=== PATIENT | female | born 1955 | race Caucasian/White ===

== ENCOUNTER → 2017-10-11 13:26 | Outpatient (CLI) | payer OTHER, SELFPAY ==
--- NOTE | 2017-10-11 13:46 | XR_ITS ---
XR chest 2V Ordering Physician: Valentino Elias MD Patient Age: 62 years: Female HISTORY: ITS.REASON: BRONCHITIS COPD. Short of breath TECHNIQUE: PA and lateral chest COMPARISON :February 2 [address] chest January [address] chest FINDINGS The previous CT chest show some areas of scarring anteriorly at both lingula and RML I believe those are again seen on today's CXR The mild accentuation of markings anteriorly at the lingula partially obscures the the left heart border cardiac apex but if anything the lung slightly better delineated and clear. Than on 2015 portable chest. The heart is normal in size reji and mediastinal structures satisfactory. The chest wall is intact T-spine intact. IMPRESSION: 1. Stable chest nothing definitely acute. COPD Minimal scarring/Mild chronic changes anteriorly at lingula and RML as seen on previous studies
== END ==
PROVIDERS: PCP Family Medicine; Visit Provider Family Medicine
DX: J20.0 Acute bronchitis due to Mycoplasma pneumoniae (principal)
CPT/HCPCS: 71046

== ENCOUNTER → 2018-01-11 07:49 | Outpatient (CLI) | payer OTHER, SELFPAY ==
--- NOTE | 2018-01-11 07:52 | CT_ITS ---
CT lung screening EXAM: CT LUNG LOW DOSE WO CONTRAST COMPARISON: None HISTORY: 62-year-old female with 60 pack-year smoking history, asymptomatic, quit 3 years ago ITS.REASON: PERSONAL HX NICOTINE DEPENDENCE ORDERING PHYSICIAN: Valentino Elias MD PATIENT AGE: 62 years TECHNIQUE: The exam was performed on a [employer] Light Speed [address] scanner using 2.90 mGy CTDI. A low dose helical CT CHEST was performed on a multi-detector scanner. All CT scans at the facility use one or more dose reduction, viz: automated exposure control; ma/kV adjustment per patient size (including targeted exams where dose is matched to indication; i.e. head); or iterative reconstruction technique. The LDCT was performed in a facility that meets the criteria for the screening program. Data regarding this exam was submitted to ACR which is an approved registry. The order for this exam indicates that it came as a result of a lung cancer screening counseling shard decision-making visit that included all the elements required of such a visit including smoking cessation. The radiologist interpreting this exam meets the CMS criteria for the LDCT lung cancer screening program. The exam is reported using the Lung-RADS classification scale and reported to the ACR registry. NOTE: This study was performed for the specific purposes of lung cancer screening and is not an alternative to diagnostic chest CT. RADIATION DOSE: CTDI vol(CT dose Index-volume) = 2.90mG DLP (Dose Length Product) = 110.08 mGcm FINDINGS: There are scattered small mediastinal and hilar lymph nodes some of which are calcified. There are coronary artery calcifications. Centrilobular emphysema with coarsening of the bronchovascular markings consistent with smoking-related lung disease. Calcified granuloma right upper lobe inferiorly.. There is volume loss of the right middle lobe. No obvious central obstructing lesion. Atelectatic changes are present within the lingula as well involving the inferior segment. IMPRESSION: 1. Lung RADS Category: 2, benign 2. Other findings: Centrilobular emphysema with coarsening of the bronchovascular markings consistent with smoking-related lung disease. Right middle lobe collapse. Etiology may be better evaluated for with bronchoscopy if clinically warranted. No central obstructing lesion apparent. RECOMMENDATIONS: 12 month LDCT follow-up
== END ==
PROVIDERS: PCP Family Medicine; Visit Provider Family Medicine
DX: Z87.891 Personal history of nicotine dependence (principal); Z12.2 Encounter for screening for malignant neoplasm of respiratory organs

== ENCOUNTER → 2019-03-10 13:43 | Outpatient (CLI) | payer OTHER, SELFPAY ==
--- NOTE | 2019-03-10 14:07 | XR_ITS ---
XR wrist LT min 3V Ordering Physician: Vanessa Joiner APRN Patient Age: 63 years: Female HISTORY: ITS.REASON: LT WRIST INJURY Fall with left wrist pain TECHNIQUE: 3 views left wrist. COMPARISON : No previous. FINDINGS No acute fracture. No dislocation. Normal relationships. . Mild early diffuse demineralization. May benefit from correlation with DEXA . Minor deformity distal ulnar shaft likely reflects old healed fracture here. Long ulnar styloid Scant early degenerative changes at first carpal-metacarpal joint noted. .... IMPRESSION: ... 1.... No acute fracture nor dislocation.Left wrist intact . Scant degenerative changes first carpal metacarpal joint Suggestion Mild early diffuse demineralization.
== END ==
PROVIDERS: PCP Nurse Practitioner Family; Visit Provider Nurse Practitioner Family
DX: S69.92XA Unspecified injury of left wrist, hand and finger(s), initial encounter (principal)
CPT/HCPCS: 73110

== ENCOUNTER → 2019-03-20 14:07 | Outpatient (CLI) | payer OTHER, SELFPAY ==
--- NOTE | 2019-03-20 14:14 | XR_ITS ---
XR DEXA axial skeleton HISTORY: ITS.REASON: POST MENOPAUSAL ORDERING PHYSICIAN: Chely Jeffery APRN PATIENT AGE: 63 years COMPARISON: None FINDINGS: The BMD measured at the Left femoral neck is 0.622 g/cm squared with a T score of -3.0. This is considered Osteoporotic according to the World Health Organization criteria. Fracture risk is High. Treatment is advised. IMPRESSION: Osteoporosis with high fracture risk. Treatment is advised. Suggest follow-up exam March 2020
== END ==
PROVIDERS: PCP Nurse Practitioner Family; Visit Provider Nurse Practitioner
DX: M81.0 Age-related osteoporosis without current pathological fracture (principal)
CPT/HCPCS: 77080

== ENCOUNTER → 2019-04-13 15:28 | Outpatient (CLI) | payer OTHER, SELFPAY ==
--- NOTE | 2019-04-13 15:34 | US_ITS ---
US thyroid HISTORY: ITS.REASON: HYPOTHYROIDISM ORDERING PHYSICIAN: Chely Jeffery APRN PATIENT AGE: 63 years Comparison: None FINDINGS: AP diameter of the isthmus is 1.3 mm. Right thyroid lobe is 0.9 x 3.4 x 0.8 cm. Left thyroid lobe is 0.9 x 3.4 x 1.1 cm. The entire thyroid gland is moderately heterogeneous. Mid right thyroid lobe shows a oval-shaped slightly hypoechoic solid nodule which is wider than tall. Margins are smooth. Lesion is hypoechoic compared to the thyroid tissue although more echogenic compared to the strap muscles. There are no echogenic foci within the nodule. Nodule measures 0.3 x 0.3 cm in transverse and AP diameter and 0.6 cm in length. Impression: Solitary right thyroid lobe nodule as discussed above. TI-rad category is 4. Moderately suspicious. Recommendation: Follow if less than or equal to 1 cm. Therefore consider follow-up ultrasound at 6-12 months. Consider FNA if the nodule enlarges to 1.5 cm or greater.
== END ==
PROVIDERS: PCP Nurse Practitioner Family; Visit Provider Nurse Practitioner
DX: E03.9 Hypothyroidism, unspecified (principal)
CPT/HCPCS: 76536

== ENCOUNTER 2019-04-24 08:30 | Outpatient (RCR) | payer OTHER, SELFPAY ==
--- NOTE | 2019-03-20 15:55 | HMH.PTOPWND ---
Rehab Outpt Wound Evaluation Rehab OP Wound Evaluation Start: 03/20/19 15:43 Freq: Status: Active Protocol: Document 03/20/19 15:44 PWILLIAMS (Rec: 03/20/19 15:55 PWILLIAMS [id number]) Electronically Signed By Joce Rock, RIC 03/20/19 15:44 Subjective/History History History This is the initial wound clinic evaluation for Maryam Villalobos. Pt is a 63 y/o female referred to PT wound clinic for R knee wound. Pt reports 03/09/19 she was at work and tripped over a rug and skinned R knee as she fell . Pt reports wound has scabbed and is very painful. Subjective Subjective Pt c/o severe TTP and pain w/ movement Wound Eval Wound Right Knee Wound Type Abrasion Wound Length (cm) 3.5 Wound Width (cm) 2.5 Wound Depth (cm) 0.8 Wound Bed Appearance Beefy Red,Dusky Red,Yellow, Slough Percentage Granulated (%) 75 Percentage of Slough (%) 25 Percentage of Eschar (Black) (%) 10 Percentage of Eschar (Yellow) (%) 15 Wound Margins Description Well Defined Surrounding Tissue Appearance Markesan Drainage Description Serous Drainage Amount Scant Drainage Odor No Odor Dressing Status Open to Air Wound Topical Solution/Irrigant Antibiotic Irrigant Primary Dressing Silver Dressing Comment tegederm AG mesh Wound Secondary Dressing Type Drainage Sponge,Gauze Roll/ Wrap,Adhering Gauze Roll Comment optifoam lite, kerlix/coban Wound Debridement Method Sharps Wound Debridement Amount of Tissue Moderate Removed Wound Debridement Result Healthy Tissue Revealed,Yellow Sloughing Remains Dressing Change Date 03/20/19 Dressing Change Patient Tolerance Tolerated Poorly Wound Problems/Impairments Impairments Problems/Impairmments Palpation Tenderness,Impaired Walking,Impaired Shower/ Bathing,Impaired Bending, Impaired Recreational Activities,Impaired Work Activities,Wound Care Needs, Subjective C/O Pain,Impaired Self Care/Self Management Prognosis Rehab Potential Good Clinical Impression
== END 2019-04-24 08:35 | disposition home or self-care (01) ==
LOC: PT 08:30
PROVIDERS: Visit Provider Nurse Practitioner
DX: L08.9 Local infection of the skin and subcutaneous tissue, unspecified (principal)
CPT/HCPCS: 97161; 97597

== ENCOUNTER 2019-04-24 08:53 | Outpatient (CLI) | payer OTHER, SELFPAY ==
[2019-04-24 09:17] VITALS: BP 162/97; PULSE 91; RESP 18; TEMP 36.4; O2SAT 96
== END 2019-04-24 09:45 | disposition home or self-care (01) ==
LOC: INF 08:53
PROVIDERS: PCP Nurse Practitioner Family; Visit Provider Family Medicine
DX: M81.0 Age-related osteoporosis without current pathological fracture (principal)
CPT/HCPCS: 96372; J0897

== ENCOUNTER → 2019-05-09 12:53 | Outpatient (CLI) | payer OTHER, SELFPAY ==
--- NOTE | 2019-05-09 | US_ITS ---
PROCEDURE: REPEAT VIEW US CLINICAL INDICATION: Thyroid nodule COMPARISON: THY US thyroid from 04/13/2019 FINDINGS: Patient was scheduled for thyroid fine needle aspiration. Pre biopsy images were reviewed and demonstrates a small area of decreased echogenicity in the right lobe of the thyroid gland at 6 x 3 mm. This was difficult to visualize and felt too small to attempt fine-needle aspiration and is adjacent to the carotid artery. After discussing the risk and benefits with the patient and referring physician, it was decided to do follow-up ultrasounds. If the nodule increases in size and fine-needle aspiration could be performed at that time. There was no change since the previous exam of 04/13/2019 IMPRESSION: No change in small nodule in the right lobe of the thyroid gland. Suggest 6 month sonographic follow-up Dictated by: Bro Burk MD 05/10/2019 05:04 Signed by: <Electronically signed by Bro Burk MD in [place]> 05/10/2019 05:04
== END ==
PROVIDERS: PCP Family Medicine; Visit Provider Family Medicine
DX: E04.1 Nontoxic single thyroid nodule (principal)

== ENCOUNTER 2019-10-30 09:03 | Outpatient (CLI) | payer OTHER, SELFPAY ==
[2019-10-30 09:25] VITALS: BP 125/89; PULSE 89; RESP 18; TEMP 36.6; O2SAT 98
== END 2019-10-30 09:40 | disposition home or self-care (01) ==
LOC: INF 09:04
PROVIDERS: PCP Nurse Practitioner Family; Visit Provider Nurse Practitioner Family
DX: M81.0 Age-related osteoporosis without current pathological fracture (principal)
CPT/HCPCS: 96372; J0897

== ENCOUNTER → 2020-02-05 12:47 | Outpatient (CLI) | payer OTHER, SELFPAY ==
--- NOTE | 2020-02-05 12:54 | US_ITS ---
PROCEDURE: US THYROID CLINICAL INDICATION: THYROID NODULE COMPARISON: THY US thyroid from 04/13/2019 FINDINGS: Right lobe: The right lobe is 3.6 x 1.1 x 1.1 cm. There is an 8 x 4 mm hypoechoic nodule in the mid aspect of the right lobe not significantly changed Left lobe: 1.3 x 0.8 x 0.6 cm. Left lobe is atrophied with decreased echogenicity not significantly changed. Isthmus: Unremarkable Additional findings: IMPRESSION: Stable 8 mm nodule the right lobe of the thyroid gland with no change in the atrophic appearance of the left lobe Dictated by: Bro Burk MD 02/05/2020 16:11 Electronically signed by Bro Burk MD in [place] 02/05/2020 16:11
== END ==
PROVIDERS: PCP Nurse Practitioner Family; Visit Provider Otolaryngology
DX: E04.1 Nontoxic single thyroid nodule (principal)
CPT/HCPCS: 76536

== ENCOUNTER → 2020-04-29 16:38 | Outpatient (CLI) | payer OTHER, SELFPAY ==
--- NOTE | 2020-04-29 16:50 | XR_ITS ---
PROCEDURE: XR CHEST 2V CLINICAL HISTORY: cough/copd Cough, COPD COMPARISON: CR CXR CHEST(2 VIEWS-NOT PORTABLE) from 01/03/[address] CHEST W/ CONTRAST from 01/21/2015 CR CXR2 CHEST-AP VIEW ONLY from 02/19/2015 CR CXR2V XR chest 2V from 10/11/2017 FINDINGS: The cardiomediastinal silhouette and pulmonary vascularity are within normal limits. COPD. Infiltrate is present in the lingula. Atelectatic changes are present in the right lung base. No acute bony abnormalities. IMPRESSION: COPD with infiltrate in the lingula with right basilar atelectasis and small right effusion Dictated b Bro Burk MD 04/29/2020 22:49 Bro Burk MD in [place] 04/29/2020 22:49
[2020-04-29 18:27] LABS: Free T4 (Free Thyroxine) 1.29 ng/dl (0.78-2.19)
[2020-04-29 18:42] LABS: Thyroid Stimulating Hormone 4.09 uIU/mL (0.465-4.68)
[2020-05-01 19:43] LABS: Thyroid Peroxidase Antibodies <9 IU/mL (0-34)
[2020-05-02 17:20] LABS: Calcitonin <2.0 pg/mL (0.0-5.0); Thyroid Stimulating Immunoglob <0.10 IU/L (0.00-0.55)
== END ==
PROVIDERS: PCP Nurse Practitioner Family; Visit Provider Otolaryngology
DX: R05 Cough (principal); E03.9 Hypothyroidism, unspecified; E04.1 Nontoxic single thyroid nodule
CPT/HCPCS: 36415; 71046; 82308; 84439; 84443; 84445; 86376

== ENCOUNTER → 2020-05-29 09:12 | Outpatient (CLI) | payer OTHER, SELFPAY ==
--- NOTE | 2020-05-29 09:14 | US_ITS ---
PROCEDURE: US SOFT TISSUE HEAD AND NECK CLINICAL INDICATION: LOCALIZEDD SWELLING, MASS AND LUMP, HEAD COMPARISON: No exams were available for comparison FINDINGS: General survey is performed of the neck with ultrasound. The parotid and submandibular glands have an unremarkable appearance. No masses are demonstrated. No abnormal fluid collections. IMPRESSION: Remarkable ultrasound of the neck. Consider CT with contrast for more thorough evaluation if symptoms warrant Dictated by: Bro Burk MD 05/29/2020 16:09 Bro Burk MD in [place] 05/29/2020 16:09
--- NOTE | 2020-05-29 09:17 | US_ITS ---
PROCEDURE: US EXTREMITY RT LIMITED CLINICAL INDICATION: MASS OF R AXILLA COMPARISON: CT LUNGSCREEN CT lung screening from 01/11/2018 FINDINGS: There are 4 nodes in the right axilla measuring up to 2.5 by 0.5 cm. No abnormal fluid collection or other significant anomaly. IMPRESSION: Small right axillary lymph nodes are present measuring up to 2.5 x 0.5 cm Dictated by: Bro Burk MD 05/29/2020 16:05 Bro Burk MD in [place] 05/29/2020 16:05
== END ==
PROVIDERS: PCP Nurse Practitioner Family; Visit Provider Nurse Practitioner Family
DX: R22.0 Localized swelling, mass and lump, head (principal); R22.31 Localized swelling, mass and lump, right upper limb
CPT/HCPCS: 76536; 76882

== ENCOUNTER → 2020-06-17 08:23 | Outpatient (CLI) | payer OTHER, SELFPAY ==
--- NOTE | 2020-06-17 08:26 | CT_ITS ---
PROCEDURE: CT LUNG SCREENING CLINICAL INDICATION: H/O NICOTINE DEPENDENCE former smoker, quit 6-7 years ago 45-60 pack year smoking history copd family hx lung ca (brother) prior 01/11/18 COMPARISON: CT LUNGSCREEN CT lung screening from 01/11/2018 TECHNIQUE: The exam was performed on a [employer] Speed [address] scanner using 2.90 mGy CTDI. A low dose helical CT CHEST was performed on a multi-detector scanner. All CT scans at the facility use one or more dose reduction, viz: automated exposure control, ma/kV adjustment per patient size (including targeted exams where dose is matched to indication, i.e. head), or iterative reconstruction technique. The LDCT was performed in a facility that meets the criteria for the screening program. Data regarding this exam was submitted to ACR which is an approved registry. The order for this exam indicates that it came as a result of a lung cancer screening counseling shard decision-making visit that included all the elements required of such a visit including smoking cessation. The radiologist interpreting this exam meets the CMS criteria for the LDCT lung cancer screening program. The exam is reported using the Lung-RADS classification scale and reported to the ACR registry. NOTE: This study was performed for the specific purposes of lung cancer screening and is not an alternative to diagnostic chest CT. RADIATION DOSE: CTDI vol(CT dose Index-volume) = 2.90mG DLP (Dose Length Product) = 100.55 mGcm FINDINGS: Changes of COPD with scattered areas of scarring and evidence of old granulomatous disease. There are atelectatic changes versus scarring in the lung bases which have developed since the previous exam.. Scarring is present in the lingula similar to the previous exam with volume loss of the lingula. No suspicious pulmonary nodules are evident. OTHER FINDINGS: Coronary artery calcification. There is a small right periaortic lymph node at the aortic hiatus region less than 1 cm short axis unchanged IMPRESSION: Lung-RADS Category 2 Benign Appearance or Behavior Follow-up: Continue annual screening with LDCT in 12 months Dictated by: Bro Burk MD 06/26/2020 15:01 Bro Burk MD in [place] 06/26/2020 15:01
== END ==
PROVIDERS: PCP Nurse Practitioner Family; Visit Provider Internal Medicine Pulmonary Disease
DX: Z87.891 Personal history of nicotine dependence (principal); Z12.2 Encounter for screening for malignant neoplasm of respiratory organs

== ENCOUNTER → 2020-06-24 14:19 | Outpatient (CLI) | payer OTHER, SELFPAY ==
--- NOTE | 2020-06-24 | US_ITS ---
PROCEDURE: MM DIG MAMM BI DX W/CAD Digital Breast Tomosynthesis Included CLINICAL INDICATION: ACUTE LYMPHANGITIS OF R AXILLA Swelling under right arm COMPARISON: US US BREAST RT COMPLETE from 06/24/2020 TECHNIQUE: Standard CC and MLO images and 3D Tomosynthesis was obtained. R2 CAD reviewed. FINDINGS: There is average fibroglandular tissue. No malignant appearing mass or malignant-appearing microcalcification is evident. There is a small area of asymmetry in the central aspect of the right breast as seen on the MLO view. This probably represents an area of overlapping vessels as seen on the joel images. Ultrasound noncontributory. Nodes are present in both axilla. The left breast has an unremarkable appearance. Right breast ultrasound: No cyst or solid nodule demonstrated within the breast. There are several mildly prominent right axillary lymph nodes measuring up to 2.8 cm. IMPRESSION: Probably benign findings with some asymmetric density in the central aspect of the right breast. Six-month follow-up suggested. CT may provide further evaluation for adenopathy if clinically warranted. BI-RAD Category: 3 Probably Benign Finding Short Term Follow-up FOLLOW-UP: 6M 6Month Follow-up CT may of the chest may provide further evaluation for adenopathy (A letter has been sent to the patient regarding results of the study.) Dictated by: Bro Burk MD 07/01/2020 08:52 Bro Burk MD in [place] 07/04/2020 09:38
== END ==
PROVIDERS: PCP Nurse Practitioner Family; Visit Provider Nurse Practitioner Family
DX: L03.121 Acute lymphangitis of right axilla (principal)
CPT/HCPCS: 76641; 77062; 77066; G0279

== ENCOUNTER → 2020-11-01 13:59 | Outpatient (CLI) | payer OTHER, SELFPAY ==
[2020-11-01 15:36] LABS: Free T4 (Free Thyroxine) 1.79 ng/dl (0.78-2.19)
[2020-11-01 15:51] LABS: Thyroid Stimulating Hormone 0.51 uIU/mL (0.465-4.68)
== END ==
PROVIDERS: Visit Provider Otolaryngology
DX: E03.9 Hypothyroidism, unspecified (principal)
CPT/HCPCS: 36415; 84439; 84443

== ENCOUNTER → 2021-01-03 13:20 | Outpatient (CLI) | payer OTHER, SELFPAY ==
--- NOTE | 2021-01-03 13:20 | US_ITS ---
PROCEDURE: US BREAST RT COMPLETE CLINICAL INDICATION: rt breast mass COMPARISON: US US BREAST RT COMPLETE from 06/24/2020 FINDINGS: Scanning of the entire breast shows rather diffusely homogeneous echogenicity with no suspicious cystic or solid nodule identified. There are no findings to suggest architectural distortion. There are 4 normal appearing nodes in the axilla. IMPRESSION: Unremarkable ultrasound right breast and recommend the patient continue with yearly screening mammography Dictated by: Dr. Jose Hodge MD 01/09/2021 19:46 Dr. Jose Hodge MD in [place] 01/09/2021 19:46
--- NOTE | 2021-01-03 13:20 | MM_ITS ---
PROCEDURE: MM DIG MAMM DX UNILAT RT CAD Digital Breast Tomosynthesis Included CLINICAL INDICATION: rt breast mass There is a history of breast cancer in the patient's maternal grandmother. COMPARISON: MG MM DIG MAMM BI DX W/CAD from 06/24/2020 TECHNIQUE: Standard CC and MLO images and 3D Tomosynthesis was obtained. R2 CAD reviewed. FINDINGS: Minimal glandular elements are seen in the right breast just deep and superior to the nipple as noted previously. There is a benign appearing calcification central breast as well. There is no suspicious lesion and no suspicious microcalcifications. IMPRESSION: Stable exam with mildly asymmetric but benign appearing glandular elements and recommend the patient return to normal yearly screening schedule. BI-RAD Category: 1 Negative FOLLOW-UP: 6M 6Month Follow-up to return to normal screening schedule (A letter has been sent to the patient regarding results of the study.) Dictated by: Dr. Jose Hodge MD 01/07/2021 09:10 Dr. Jose Hodge MD in [place] 01/07/2021 09:10
== END ==
PROVIDERS: PCP Nurse Practitioner Family; Visit Provider Surgery
DX: R22.31 Localized swelling, mass and lump, right upper limb (principal)
CPT/HCPCS: 76641; 77061; 77065; G0279

== ENCOUNTER → 2021-01-31 12:50 | Outpatient (CLI) | payer OTHER, SELFPAY ==
--- NOTE | 2021-01-31 12:50 | US_ITS ---
PROCEDURE: US THYROID CLINICAL INDICATION: hx nodule COMPARISON: US US THYROID from 02/05/2020 FINDINGS: Right lobe: 3.2 x 1.1 x 0.7 centimeters Left lobe: 3.5 x 1.1 x 0.9 centimeters Isthmus: 0.14 centimeters Additional findings: Focal hypoechoic nodule is noted in the right lobe of thyroid gland measuring 0.6 x 0.3 centimeters, demonstrates no significant interval change. Vascularity is within normal limits. Homogeneous echotexture of the thyroid gland is noted. IMPRESSION: Nodule in the right lobe of thyroid gland measuring up to 0.6 centimeters. No significant interval change compared to prior study. Dictated by: Chantel Hernández 01/31/2021 16:47 Chantel Hernández in [place] 01/31/2021 16:47
== END ==
PROVIDERS: PCP Nurse Practitioner Family; Visit Provider Otolaryngology
DX: E03.9 Hypothyroidism, unspecified (principal); E04.1 Nontoxic single thyroid nodule; R05 Cough
CPT/HCPCS: 76536

== ENCOUNTER → 2021-05-16 09:36 | Outpatient (CLI) | payer OTHER, SELFPAY ==
--- NOTE | 2021-05-16 10:06 | XR_ITS ---
PROCEDURE: XR CHEST PORTABLE CLINICAL HISTORY: COVID TESTING Shortness of air and COMPARISON: CT CHW CT CHEST W/ CONTRAST from 01/21/2015 CR CXR2 CHEST-AP VIEW ONLY from 02/19/2015 CR CXR2V XR chest 2V from 10/11/2017 CR XR CHEST 2V from 04/29/2020 FINDINGS: The cardiomediastinal silhouette and pulmonary vascularity are within normal limits. No definite lobar consolidation or collapse. Increased density is noted over the left heart border and may be due to chronic volume loss of the lingula as seen on a previous x-rays and chest CT.. COPD with blunting of the CP angles noted No acute bony abnormalities. IMPRESSION: COPD. No acute finding. Dictated by: Bro Burk MD 05/16/2021 10:56 Bro Burk MD in [place] 05/16/2021 10:56
== END ==
PROVIDERS: PCP Nurse Practitioner Family; Visit Provider Nurse Practitioner Family
DX: Z20.822 Contact with and (suspected) exposure to COVID-19 (principal); R06.02 Shortness of breath; J43.1 Panlobular emphysema; R50.9 Fever, unspecified
CPT/HCPCS: 71045; U0003

== ENCOUNTER → 2021-07-10 14:35 | Outpatient (CLI) | payer OTHER, SELFPAY ==
--- NOTE | 2021-07-10 14:37 | MM_ITS ---
PROCEDURE: MM DIG SCREENING MAMM BI W/CAD Digital Breast Tomosynthesis Included CLINICAL INDICATION: screening There is a history of breast cancer in the patient's maternal grandmother. COMPARISON: MG MM DIG MAMM BI DX W/CAD from 06/24/2020 MG MM DIG MAMM DX UNILAT RT CAD from 01/03/2021 TECHNIQUE: Standard CC and MLO images and 3D Tomosynthesis was obtained. R2 CAD reviewed. FINDINGS: Mild scattered fibroglandular densities are seen in both breast on a background of fatty breast parenchyma. There is a benign-appearing microcalcification in each breast. There is a mole marker left breast. There are no CAD markings. IMPRESSION: Fibrofatty parenchyma with no suspicious lesions seen BI-RAD Category: 2 Benign Finding(s) FOLLOW-UP: 1YR 1 Year Follow-up (A letter has been sent to the patient regarding results of the study.) Dictated by: Dr. Jose Hodge MD 07/16/2021 08:27 Dr. Jose Hodge MD in [place] 07/16/2021 08:27
== END ==
PROVIDERS: PCP Nurse Practitioner Family; Visit Provider Nurse Practitioner Family
DX: Z12.31 Encounter for screening mammogram for malignant neoplasm of breast (principal)
CPT/HCPCS: 77063; 77067

== ENCOUNTER → 2021-07-28 12:54 | Outpatient (CLI) | payer OTHER, SELFPAY ==
--- NOTE | 2021-07-28 12:55 | US_ITS ---
PROCEDURE: US THYROID CLINICAL INDICATION: thyroid nodule The the COMPARISON: US THY US thyroid from 04/13/2019 US US THYROID from 04/13/2019 US US THYROID from 01/31/2021 FINDINGS: Right lobe: 3.4 x 1.1 x 1.1 cm. There is heterogeneous echogenicity of the right lobe of the thyroid gland. 6 x 4 mm slightly hypoechoic nodule mid aspect of the right lobe not significantly changed. Left lobe: 2 x 0.9 x 0.8 cm with heterogeneous echogenicity. Isthmus: Unremarkable Additional findings: IMPRESSION: Atrophic changes of the thyroid gland with no change in the small right thyroid nodule Dictated by: Bro Burk MD 07/28/2021 18:00 Bro Burk MD in [place] 07/28/2021 18:00
== END ==
PROVIDERS: PCP Nurse Practitioner Family; Visit Provider Otolaryngology
DX: E03.9 Hypothyroidism, unspecified (principal); E04.1 Nontoxic single thyroid nodule
CPT/HCPCS: 76536

== ENCOUNTER → 2021-08-08 11:36 | Outpatient (CLI) | payer OTHER, SELFPAY ==
[2021-08-08 13:34] LABS: Free T4 (Free Thyroxine) 2.17 ng/dl (0.78-2.19)
[2021-08-08 13:48] LABS: Thyroid Stimulating Hormone < 0.02 uIU/mL (0.465-4.68)
[2021-08-09 10:27] LABS: Thyroid Peroxidase Antibodies 29 IU/mL (0-34)
== END ==
PROVIDERS: Visit Provider Otolaryngology
DX: E03.9 Hypothyroidism, unspecified (principal); E04.1 Nontoxic single thyroid nodule
CPT/HCPCS: 36415; 84439; 84443; 86376

== ENCOUNTER → 2022-06-01 09:22 | Outpatient (CLI) | payer OTHER, SELFPAY ==
--- NOTE | 2022-06-01 09:29 | US_ITS ---
FINAL REPORT CLINICAL HISTORY: ELEVATED LIVER ENZYMES FINDINGS: ULTRASOUND RIGHT UPPER QUADRANT Sonographic imaging of the right upper quadrant was obtained. The pancreas is partially obscured. The liver has increased echogenicity consistent fatty infiltration. There is no evidence of gallstones. There is no gallbladder wall thickening. There is no biliary ductal dilatation. The common duct is normal at 2 mm. Limited images of the right kidney are unremarkable. IMPRESSION: Fatty liver. Otherwise unremarkable right upper quadrant ultrasound. Reviewed, Interpreted and Dictated by Steven Concepcion III, MD Transcribed by Gisselle Morfin Authenticated and [facility]
--- NOTE | 2022-06-01 09:29 | US_ITS ---
FINAL REPORT CLINICAL HISTORY: THYROID NODULE COMPARISON: July 28, 2021 FINDINGS: THYROID ULTRASOUND Sonographic images of the thyroid was obtained. The thyroid has a somewhat heterogeneous echotexture. The right lobe of the thyroid measures 2.2 x 1.4 x 0.9 cm. There is a 7 x 2 x 4 mm solid hypoechoic TI-RADS category 4 nodule which is stable. The left lobe of the thyroid measures 2.6 x 0.8 x 0.7 cm. The isthmus measures 2 mm. IMPRESSION: Small heterogeneous thyroid, nonspecific. Can be seen with chronic thyroiditis. Stable small right lobe nodule. Reviewed, Interpreted and Dictated by Steven Concepcion III, MD Transcribed by Gisselle Morfin Authenticated and [facility]
== END ==
PROVIDERS: PCP Nurse Practitioner Family; Visit Provider Nurse Practitioner Family
DX: E04.1 Nontoxic single thyroid nodule (principal); R74.8 Abnormal levels of other serum enzymes
CPT/HCPCS: 76536; 76705

== ENCOUNTER → 2022-08-05 10:53 | Outpatient (CLI) | payer MEDICARE, OTHER, SELFPAY ==
--- NOTE | 2022-08-05 10:55 | MM_ITS ---
PROCEDURE INFORMATION: Exam: MG Bilateral Screening 3D Mammography Exam date and time: 08/05/2022 10:54 AM Age: 67 years old Clinical indication: Screening examination. Her maternal grandmother had breast cancer. TECHNIQUE: Imaging protocol: Bilateral Screening tomosynthesis and 2D mammography including computer-aided detection (CAD) when performed. COMPARISON: 1. MG MM DIG SCREENING MAMM BI W/CAD 07/10/2021 2:46 PM 2. MG MM DIG MAMM DX UNILAT RT CAD 01/03/2021 1:22 PM 3. MG MM DIG MAMM BI DX W/CAD 06/24/2020 2:31 PM 4. US BREAST RT COMPLETE 01/03/2021 1:48 PM MG MM DIG MAMM BI DX W/CAD 06/24/2020 2:31 PM FINDINGS: MAMMOGRAPHY: Breast composition: There are scattered areas of fibroglandular density. Mass: No suspicious mass. Architectural distortion: None. Calcifications: No suspicious calcifications. Asymmetric density: None. Skin thickening: None. Axillary adenopathy: None. IMPRESSION: No mammographic evidence of malignancy. Annual screening is recommended unless otherwise clinically indicated. ASSESSMENT: BI-RADS Category 1: Negative
== END ==
PROVIDERS: PCP Nurse Practitioner Family; Visit Provider Nurse Practitioner Family
DX: Z12.31 Encounter for screening mammogram for malignant neoplasm of breast (principal)
CPT/HCPCS: 77063; 77067

== ENCOUNTER → 2023-03-10 12:53 | Outpatient (CLI) | payer MEDICARE, MEDICAID, SELFPAY ==
--- NOTE | 2023-03-10 12:59 | US_ITS ---
FINAL REPORT CLINICAL HISTORY: NODULE COMPARISON: 06/01/2022 FINDINGS: Thyroid ultrasound: The right lobe of the thyroid gland is somewhat small, heterogeneous, and measures 2.5 x 1 x 1.2 cm in size. There is a 7 x 2 x 4 mm solid hypoechoic nodule in the right lobe of the thyroid which is unchanged in appearance since the prior exam of 2021. The left thyroid gland measures 2.5 x 0.9 x 1 cm in size. This lobe is also somewhat small and heterogeneous in appearance. No focal nodules are identified. The isthmus of the thyroid measures 2 mm in thickness. No focal masses are identified. IMPRESSION: Right thyroid nodule unchanged in size or appearance since the prior ultrasound of 2021. This is a TI-RADS category 4 nodule, and at this point no further follow-up is required. Reviewed, Interpreted and Dictated by Billy Chua MD Transcribed by Norma Barbosa Authenticated and [facility]
== END ==
PROVIDERS: PCP Nurse Practitioner Family; Visit Provider Nurse Practitioner Family
DX: E04.1 Nontoxic single thyroid nodule (principal)
CPT/HCPCS: 76536

== ENCOUNTER 2023-03-17 08:18 | Day surgery (SDC) | payer MEDICARE, MEDICAID, SELFPAY ==
[2023-03-11 13:04] VITALS: BMI 22.4
[2023-03-17] VITALS (7 sets, daily range): BP systolic 104–156; BP diastolic 57–81; PULSE 56–72; RESP 18; TEMP 36.1–36.8; O2SAT 93–97
--- NOTE | 2023-03-17 08:54 | P.PN_ITS ---
[facility] Disclaimer: The information contained in this section may have been updated after the patient was seen, as this information can be updated by other users. 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 current occupational exposures/hazards: No caffeine: Yes special yong needs: No do you feel safe at home: Yes victim of physical abuse: No victim of emotional abuse: No victim of sexual abuse: No would you like helpful sources: No [facility] Anesthesia Checklist Patient Identification Patient Identification: Arm Band and Verbal (Name & ) Structural Data Admitted From: Home Planned Operative Procedure/s: Colonoscopy Consent for Planned Operative Procedure(s) Verified: Yes NPO Status Verified Time NPO: 00:00 Airway Assessment C-Spine Mobility Assessed: Yes TMJ Mobility Assessed: Yes Dentition: Poor Dentition Neurological Assessment Level of Consciousness: Awake Hx Seizures: No Numbness or tingling in extremities: No Anesthesia Plan Anesthesia Risk discussed: Yes Anesthesia Plan: Verified ASA Class: II Anesthesia Type: MAC
--- NOTE | 2023-03-17 10:11 | HMH.SCOPE ---
Procedure: Date: 03/17/23 Patient Date of :: 1955 Procedure Performed:: Colonoscopy Indications:: Positive cologuard test Performing Provider:: Elia Hood MD Referring Provider:: Vanessa Joiner APRN Sedation:: See RN records Procedure:: After placing the patient in the left lateral decubitus position, the colonoscopy was gently inserted into the rectum and under direct visualization advanced to the cecum which was identified by transillumination in the right lower quadrant, identification of the ileocecal valve, appendiceal orifice, and cecal strap. Color, texture, mucosa, and anatomy of the colon were carefully examined with the scope. Findings:: Anal canal: normal Rectum: hemorrhoids Sigmoid colon: diverticulosis Descending colon: sessile polyp 5 mm in size. Removed with cold snare polypectomy Splenic flexure: Larger multilobular polyp lesion with broad base at approximately 75 cm. Biopsies obtained. Endoscopic marker was placed at opposite wall. Transverse colon: Two polyps 5 mm in size and less. Removed with cold snare polypectomy Hepatic flexure: normal Ascending colon: Two polyps less than 5 mm in size. Removed with cold snare polypectomy Cecum: Polyp less than 5 mm in size. Removed with cold snare polypectomy Terminal ileum: not visualized Impression: Multiple polyps Larger polypoid mass lesion at 75 cm Diverticulosis Colon spasms Recommendations:: Await pathology results Will refer to surgery consultation for large polypoid lesion at 75 cm Recommend that the patient speak to any adult children and also siblings about having a colonoscopy if not done already Repeat colonoscopy in 1 year after surgery Complications:: None Estimated blood obtained (mL): 0 Colonoscopy Component Colonoscopy Component Was a colonoscopy performed during today's procedure?: Yes Recommended follow up colonoscopy of at least 10 years?: Yes
== END 2023-03-17 11:26 | disposition home or self-care (01) ==
PROVIDERS: PCP Nurse Practitioner Family; Visit Provider Internal Medicine
PROC: 0DJD8ZZ Inspection of Lower Intestinal Tract, Via Natural or Artificial Opening Endoscopic (ICD-10-PCS; CPT 45378; principal; 2023-03-17 09:30)
DX: D12.0 Benign neoplasm of cecum (principal); D12.2 Benign neoplasm of ascending colon; D12.3 Benign neoplasm of transverse colon; D12.4 Benign neoplasm of descending colon; K57.30 Diverticulosis of large intestine without perforation or abscess without bleeding
CPT/HCPCS: 45385; 88305; J2704

== ENCOUNTER 2023-04-27 11:25 | Day surgery (SDC) | payer MEDICARE, MEDICAID, SELFPAY ==
[2023-04-23 14:05] VITALS: BMI 22.3
[2023-04-27] VITALS (12 sets, daily range): BP systolic 84–146; BP diastolic 47–97; PULSE 62–71; RESP 16–18; TEMP 36.1–36.6; O2SAT 93–98
--- NOTE | 2023-04-27 11:54 | P.PNANES_ITS ---
[facility] Disclaimer: The information contained in this section may have been updated after the patient was seen, as this information can be updated by other users. Medical History (Updated 04/27/23 @ 11:40 by Barbara Nj RN) Asthma COPD (chronic obstructive pulmonary disease) COPD (chronic obstructive pulmonary disease) History of home oxygen therapy Hypothyroid Surgical History History of colonoscopy Family History Other Family history of cancer Family history of hypertension Social History Smoking Status: Former smoker quit date: 01/22/13 alcohol intake: former substance use type: denies use current occupational status: retired Travel in the last 8 weeks: None caregiver/support person: Yes household members: family housing: house lives independently: Yes marital status: single education level: high school service: No 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 current occupational exposures/hazards: No caffeine: Yes special yong needs: No do you feel safe at home: Yes victim of physical abuse: No victim of emotional abuse: No victim of sexual abuse: No would you like helpful sources: No [facility] Anesthesia Checklist Patient Identification Patient Identification: Arm Band Structural Data Admitted From: Home Planned Operative Procedure/s: colonoscopy Consent for Planned Operative Procedure(s) Verified: Yes Verified Documents: Surgical Consent and History and Physical NPO Status Verified Time NPO: 00:00 Additional verifications Anesthesia Reactions: No Airway Assessment Mallampati Score:: Class II C-Spine Mobility Assessed: Yes TMJ Mobility Assessed: Yes Dentition: Good Dentition Neurological Assessment Level of Consciousness: Awake and Alert Anesthesia Plan Anesthesia Risk discussed: Yes Anesthesia Plan: Verified ASA Class: III Anesthesia Type: MAC
--- NOTE | 2023-04-27 12:48 | HMH.SCOPE ---
Procedure: Date: 04/27/23 Patient Date of :: 1955 Procedure Performed:: Colonoscopy with polypectomy Indications:: Large complex polyp at 70/75 cm status post recent biopsy proven to be adenomatous Performing Provider:: Lew Hair MD Referring Provider:: Dr. Hood Sedation:: Monitored anesthesia care Procedure:: After informed consent was obtained the patient was taken to the endoscopy suite. Sedation ensued after the patient was transferred to the left lateral decubitus position. Pulse, blood pressure, and oxygen saturation were monitored throughout the procedure. Digital rectal exam revealed no significant abnormality. The colonoscope was placed in position. The entire colon was evaluated. The colonoscope was carefully removed and the patient was transferred to recovery in stable condition. Please see findings and specimens below for detail. Findings:: Bowel preparation fair to moderate Large complex polyp around 70 cm with adjacent tattoo Polyp was initially excised in a piecemeal fashion utilizing hot snare Specimens:: Complex lobulated polyp around 70 cm (prior biopsy proven to be adenomatous)?hot snare Recommendations:: Follow-up pathology Complications:: No immediate Estimated blood obtained (mL): 1 Comment:: Secondary to the complex nature of the lesion [extended piecemeal excision with hot snare] she will be maintained in recovery for 2 hours at which time a flat/upright abdominal film will be obtained. Colonoscopy Component Colonoscopy Component Was a colonoscopy performed during today's procedure?: Yes Recommended follow up colonoscopy of at least 10 years?: No If no, follow up colonoscopy recommended in ___ years?: 3-6 months Reason for not recommending >/= 10 yr follow-up interval?: Complex adenoma
--- NOTE | 2023-04-27 14:45 | XR_ITS ---
FINAL REPORT CLINICAL HISTORY: Post-colonoscopy pain; large polyp excision FINDINGS: Chest: A single view of the chest demonstrates mild bibasilar atelectasis. Abdomen: Flat and upright views of the abdomen demonstrate multiple air-filled bowel loops in the nonspecific bowel gas pattern. There is no free air. IMPRESSION: No free air. Reviewed, Interpreted and Dictated by Steven Concepcion III, MD Transcribed by Aj Trejo Authenticated and [facility]
== END 2023-04-27 16:01 | disposition home or self-care (01) ==
PROVIDERS: PCP Nurse Practitioner Family; Visit Provider Surgery
PROC: 0DJD8ZZ Inspection of Lower Intestinal Tract, Via Natural or Artificial Opening Endoscopic (ICD-10-PCS; principal; 2023-04-27 12:30)
DX: Z86.010 Personal history of colon polyps (principal); D12.4 Benign neoplasm of descending colon
CPT/HCPCS: 45385; 74021; 88305; J2704

== ENCOUNTER → 2023-07-16 11:35 | Outpatient (CLI) | payer MEDICARE, MEDICAID, SELFPAY | PROVIDERS: PCP Nurse Practitioner Family; Visit Provider Nurse Practitioner Family | DX: J44.1 Chronic obstructive pulmonary disease with (acute) exacerbation (principal) ==

== ENCOUNTER → 2023-07-16 11:49 | Outpatient (CLI) | payer MEDICARE, MEDICAID, SELFPAY ==
--- NOTE | 2023-07-16 11:53 | XR_ITS ---
FINAL REPORT CLINICAL HISTORY: cough, shortness of breath, COPD COMPARISON: 05/16/2021 FINDINGS: Two views of the chest were obtained. The heart size and pulmonary vascularity are within normal limits. The mediastinum is normal. The lungs are hyperinflated consistent with COPD. There is mild atelectasis or scarring in the lung bases. There is no pneumothorax. The bony thorax is intact. IMPRESSION: Mild atelectasis or scarring in the lung bases. Reviewed, Interpreted and Dictated by Steven Concepcion III, MD Transcribed by Ayla Tate Authenticated and . [facility]
[2023-07-16 12:32] LABS: Adenovirus,PCR Not Detected (NotDetected); Coronavirus 19, PCR Not Detected (NotDetected); Coronavirus 229E Not Detected (NotDetected); Coronavirus NL63 Not Detected (NotDetected); Coronavirus OC43 Not Detected (NotDetected); Coronovirus HKU1,PCR Not Detected (NotDetected); Human Metapneumovirus Not Detected (NotDetected); Influenza A, PCR Not Detected (NotDetected); Influenza AH1, 2009 Not Detected (NotDetected); Influenza AH1, PCR Not Detected (NotDetected); Influenza AH3,PCR Not Detected (NotDetected); Influenza B, PCR Not Detected (NotDetected); Parainfluenza 1, PCR Not Detected (NotDetected); Parainfluenza 2, PCR Not Detected (NotDetected); Parainfluenza 3, PCR Not Detected (NotDetected); Parainfluenza 4, PCR Not Detected (NotDetected); Respiratory Syncytial Virus Not Detected (NotDetected); Rhinovirus/Enterovirus Not Detected (NotDetected)
== END ==
PROVIDERS: PCP Nurse Practitioner Family; Visit Provider Nurse Practitioner Family
DX: J44.1 Chronic obstructive pulmonary disease with (acute) exacerbation (principal); R06.02 Shortness of breath; R09.89 Other specified symptoms and signs involving the circulatory and respiratory systems; R05.1 Acute cough; R06.2 Wheezing
CPT/HCPCS: 71046; 87632; 87635

== ENCOUNTER → 2023-07-17 10:59 | Outpatient (CLI) | payer MEDICARE, MEDICAID, SELFPAY | PROVIDERS: PCP Nurse Practitioner Family; Visit Provider Nurse Practitioner Family | DX: R06.09 Other forms of dyspnea (principal); R05.9 Cough, unspecified; R06.2 Wheezing; B96.89 Other specified bacterial agents as the cause of diseases classified elsewhere | CPT/HCPCS: 87070; 87205 ==

== ENCOUNTER → 2023-07-23 13:18 | Outpatient (CLI) | payer MEDICARE, MEDICAID, SELFPAY ==
[2023-07-23 13:20] LABS: Alanine Aminotransferase 16 U/L (12-78); Albumin Level 4.2 g/dl (3.5-5.0); Albumin/Globulin Ratio 1.6 (1.1-1.8); Alkaline Phosphatase 71 U/L (38-126); Anion Gap 13.4 mEq/L (5-15); Aspartate Amino Transferase 25 U/L (14-36); Bilirubin,Total 0.5 mg/dl (0.2-1.3); Blood Urea Nitrogen 11 mg/dl (7-17); Calcium 9.5 mg/dl (8.4-10.2); Carbon Dioxide 32 mmol/L (22.0-30.0); Chloride 96 mmol/L (98-107); Chol/HDL Ratio 2.2 (1-3.5); Cholesterol 226 mg/dl (140-200); Estimated Glomerular Filt Rate 123 ml/min (>60); GFR (African American) 149 ML/MIN (>60); Globulin 2.6 g/dL (1.3-3.2); Glucose 87 mg/dl (74-100); HDL Cholesterol 101 mg/dl (40-60); Potassium 4.4 mmoL/L (3.5-5.1); Sodium 137 mmol/L (136-145); Total Protein,Serum 6.8 g/dl (6.3-8.2); Triglycerides 151 mg/dl (30-150); VLDL Cholesterol 30 mg/dL (0-40)
[2023-07-23 13:30] LABS: Direct LDL Cholesterol 107.98 mg/dL (100-129)
[2023-07-23 13:37] LABS: T4 (Thyroxine) 10.4 ug/dl (5.53-11.0)
[2023-07-23 13:50] LABS: Thyroid Stimulating Hormone < 0.02 uIU/mL (0.465-4.68)
[2023-07-25 08:16] LABS: Triiodothyronine (T3) Free 2.2 pg/mL (2.0-4.4)
== END ==
PROVIDERS: PCP Nurse Practitioner Family; Visit Provider Nurse Practitioner Family
DX: E03.9 Hypothyroidism, unspecified (principal)
CPT/HCPCS: 80053; 80061; 84436; 84443; 84481

== ENCOUNTER → 2023-07-27 08:51 | Outpatient (CLI) | payer MEDICARE, MEDICAID, SELFPAY ==
--- NOTE | 2023-07-27 08:51 | US_ITS ---
FINAL REPORT CLINICAL HISTORY: Prolonged capillary refill, PAD FINDINGS: BILATERAL ANKLE BRACHIAL INDICES Pressure indices are as follows are: RIGHT LOWER EXTREMITY Ankle brachial pressure index: 0.81 Toe brachial pressure index: 0.4 COMMENTS: Mild to moderate peripheral artery disease LEFT LOWER EXTREMITY Ankle brachial pressure index: 0.96 Toe brachial pressure index: 0.40 COMMENTS: Normal IMPRESSION: Mild to moderate peripheral arterial disease of the right lower extremity. No evidence of significant obstructive peripheral arterial disease of the left lower extremity.. Reviewed, Interpreted and Dictated by Joanie Gutierrez MD Transcribed by Anabelle Blackburn Authenticated and . [facility]
== END ==
PROVIDERS: PCP Nurse Practitioner Family; Visit Provider Nurse Practitioner Family
DX: I73.9 Peripheral vascular disease, unspecified (principal)
CPT/HCPCS: 93923

== ENCOUNTER → 2023-08-06 10:17 | Outpatient (CLI) | payer MEDICARE, MEDICAID, SELFPAY ==
--- NOTE | 2023-08-06 10:17 | MM_ITS ---
PROCEDURE INFORMATION: Exam: MG Bilateral Screening 3D Mammography Exam date and time: 08/06/2023 10:19 AM Age: 68 years old Clinical indication: Screening examination TECHNIQUE: Imaging protocol: Bilateral Screening tomosynthesis and 2D mammography including computer-aided detection (CAD) when performed. COMPARISON: 1. MG MM DIG SCREENING MAMM BI W/CAD 08/05/2022 10:54 AM 2. MG MM DIG SCREENING MAMM BI W/CAD 07/10/2021 2:46 PM FINDINGS: MAMMOGRAPHY: Breast composition: There are scattered areas of fibroglandular density. Mass: None. Architectural distortion: None. Calcifications: No suspicious calcifications. Asymmetric density: None. Skin thickening: None. Axillary adenopathy: None. IMPRESSION: No mammographic evidence of malignancy. Annual screening is recommended unless otherwise clinically indicated. ASSESSMENT: BI-RADS Category 1: Negative
== END ==
PROVIDERS: PCP Nurse Practitioner Family; Visit Provider Nurse Practitioner Family
DX: Z12.31 Encounter for screening mammogram for malignant neoplasm of breast (principal)
CPT/HCPCS: 77063; 77067

== ENCOUNTER → 2023-08-20 06:57 | Outpatient (CLI) | payer MEDICARE, MEDICAID, SELFPAY ==
--- NOTE | 2023-08-20 06:58 | NM_ITS ---
APPROVED REPORT Exam: Nuclear Stress Test Indication: sob, former tob use, copd, blockage in leg Patient Location: Outpatient Stress Tech: Toshia Prather NC Tech:Allyn MccollumZAY RT (R)(N)(M) Ht: 5 ft 3 in Wt: 125 lbs Bra Size: B HR: 95 bpm BP: 152/74 mmHg BSA: 1.58 m2 TID: 1.16 BMI: 22.1 History: sob, former tob use, copd Procedure: Patient received 0.4 mg of intravenous Lexiscan, resting heart rate 95 bpm, resting blood pressure 152/74 mmHg, with Lexiscan maximum heart rate achieved was 115 bpm which is % of the maximum predicted heart rate and blood pressure was 174/79 mmHg. With Lexiscan, patient denied any complaint of chest pain. Cardiac Stress and Resting SPECT Images: Cardiac Stress and Resting SPECT images were obtained using technetium 99m Myoview 31.0 mCi stress and 10.55 mCi at rest. Resting and stress imaging in supine and prone positions demonstrate no evidence of fixed or reversible perfusion defects. Gated imaging demonstrates normal global and regional LV systolic function. LVEF is calculated at 60%. Conclusion: No evidence of fixed or reversible perfusion defects. Gated imaging demonstrates normal global and regional LV systolic function. LVEF is calculated at 60%. Electronically signed by : Mignon Hurst MD 08/24/2023 11:23:43
--- NOTE | 2023-08-20 07:36 | CA_ITS ---
APPROVED REPORT EXAM: Comprehensive 2D, Doppler, and color-flow Echocardiogram Safe Technician: Annmarie Diane RVT Ht: 5 ft 2 in Wt: 125lbs BSA: 1.57 BP: 126/87 mmHg Indications: SOA,COPD,CP,EX SMOKER 2D Dimensions LA Volume 31.00 mL LA Volume Index 19.75 mL/m2 (M/F) 16-34 M-Mode Dimensions RVDd 2.53 cm (0.9-2.6) LA Diam 3.39 cm (1.9-4.0) LVDd 4.78 cm (3.5-5.7) LVDs 3.17 cm (3.5-5.7) IVSd 0.93 cm (0.6-1.1) PWd 0.86 cm (0.6-1.1) EF (Teich) 62.40% FS 33.70% EDV (Teich) 106.50 mL TAPSE 1.92 (<1.7) ESV (Teich) 40.00 mL LV Diastology E Decel Time 210 (160-240 msec) E/A Ratio 0.9 Aortic Valve AO Peak GR. 6.60 mmHg Mitral Valve MV E Max Vitaliy. 77.0 (40-130 cm/s) MV A Velocity 88.0 (40-130 cm/s) E/A Ratio 0.88 MV PHT 62.0 ms Pulmonary Valve PV Peak Velocity 76.0 (50-150 cm/s) Tricuspid Valve TR P. Velocity 208.00 cm/s RAP Estimate 10.00 mmHg RVSP 27.30 mmHg Left Ventricle The left ventricle is normal size. The left ventricular systolic function is normal. The left ventricular ejection fraction is within the normal range. There is normal left ventricular wall thickness. There is normal LV segmental wall motion. The left ventricular diastolic function is normal. LVEF is 55%. Right Ventricle The right ventricle is normal size. The right ventricular systolic function is normal. Atria The left atrium size is normal. The right atrium size is normal. There is no Doppler evidence of interatrial shunt. Aortic Valve The aortic valve is normal in structure. There is no aortic valvular stenosis. No aortic regurgitation is present. Mitral Valve The mitral valve is normal in structure. No evidence of mitral valve stenosis. Mild mitral regurgitation. Tricuspid Valve The tricuspid valve leaflets are thin and pliable. Mild tricuspid regurgitation. RVSP is normal. Pulmonic Valve The pulmonary valve is normal in structure. Trace pulmonic regurgitation. Great Vessels The aortic root is normal in size. The ascending aorta is normal in size. IVC is normal in size and collapses >50% with inspiration. Pericardium There is no pericardial effusion. Other Information Study Quality: Adequate Conclusion Normal biventricular systolic function. Mild MR, mild TR. Electronically signed by : Mignon Hurst MD 08/26/2023 23:05:03
--- NOTE | 2023-08-20 10:18 | CA_ITS ---
APPROVED REPORT Exam: Pharmacologic Technologist: Toshia Leyva, Ht: 5 ft 2 in Wt: 125 lbs BSA: 1.57 m2 HR: 86 bpm BP: 152/74 mmHg Rhythm: NSR Medical History Medications: Levothyroxine,,,,, Aspirin,,,,, Atorvastatin,,,,, Albuterol,,,,, Trelegy,,,,, Ibandronate,,,,, Stress Test Details Test: LEXISCAN Reason for pharmacologic stress test: physical limitation. HR Resting HR: 95 bpm Max Heart Rate (APMHR): 154 bpm Max HR Achieved: 115 bpm Target HR (85% APMHR): 131 bpm % of APMHR: 75 Recovery HR: 100 bpm BP Resting BP: 152/74 mmHg Max BP: 174/79 mmHg Recovery BP: 150.0/74.0 mmHg ECG Resting ECG: NSR, normal Clinical Exercise duration: 04:00 min Highest Stage Achieved: Exercise capacity: 1.0 METs Stress ECG Conclusion Symptoms: SOA, No CP. Arrhythmias/Ectopy: None ST-T Changes: No significant ST changes. Conclusion: Unremarkable Lexiscan stress. Myoview images reported separately. Test Summary REST . . . . . . . Resting REST . . . . . . . Resting REST 03:03 . . 95 . 152/ 74 . . Stage 1 01:00 . . 112 . . . . Stage 2 01:00 . . 111 . 174/ 79 . . Stage 3 01:00 . . 102 . 148/ 71 . . Stage 4 01:00 . . 101 . 144/ 67 . Stop exercise at 04:00 RECOVERY 01:00 . . 98 . . . . RECOVERY 02:00 . . 99 . 148/ 74 . . RECOVERY 03:00 . . 97 . 150/ 74 . . RECOVERY 03:32 . . 93 . 150/ 74 . . Electronically signed by : Mignon Hurst MD 08/24/2023 11:22:39
== END ==
LOC: RAD 06:58
PROVIDERS: PCP Nurse Practitioner Family; Visit Provider Nurse Practitioner Family
DX: I73.9 Peripheral vascular disease, unspecified (principal); J44.1 Chronic obstructive pulmonary disease with (acute) exacerbation; L81.9 Disorder of pigmentation, unspecified; R06.02 Shortness of breath; R68.89 Other general symptoms and signs; Z87.891 Personal history of nicotine dependence
CPT/HCPCS: 78452; 93017; 93018; 93306; A9502; J2785

== ENCOUNTER → 2023-09-08 13:52 | Outpatient (CLI) | payer MEDICARE, MEDICAID, SELFPAY | LOC: LAB.DROPOF 13:53 | PROVIDERS: PCP Nurse Practitioner Family; Visit Provider Nurse Practitioner Family | DX: R05.1 Acute cough (principal) | CPT/HCPCS: 87635 ==

== ENCOUNTER → 2023-09-16 07:51 | Outpatient (CLI) | payer MEDICARE, MEDICAID, SELFPAY ==
--- NOTE | 2023-09-16 07:52 | CT_ITS ---
APPROVED REPORT Theatre Arts Professor: CLINICAL INDICATION Chest Pain TECHNIQUE Image Acquisition: A 128 slice MDCT scanner ([employer] View) was used for data acquisition. A noncontrast coronary calcium scan was performed. A CT attenuation threshold of 130 Hounsfield units (HU) was used for the detection of calcium in contiguous voxels of 1 sq mm in area to be counted as individual lesions. Bolus tracking in the ascending aorta with a threshold of 180 HU was performed. Immediately afterwards, ECG synchronized cardiac CT was then performed from the cardiac base to apex using retrospective gating with ECG tube current modulation. A total of 85 mL of Isovue 370 mg/mL contrast medium was administered at 5 mL/sec followed by a saline flush using a biphasic injection protocol. A tube voltage of 120 KVp was used. The patient received the following medications prior to the cardiac CT. 100 mg of oral metoprolol 5 mg of intravenous metoprolol The average heart rate at the time of acquisition was 61 bpm and regular. Image Reconstruction Transaxial images were reconstructed at 0.67 mm slide thickness. Data was reviewed interactively on an advanced workstation capable of 2 and 3-dimensional displays in all conventional reconstruction formats, including multiplanar reformations, maximum intensity projections, curved multiplanar reformations, and volume rendered reconstructions. When applicable, selected routine images describing the relevant coronary anatomy and pathology were saved and sent to PACS. Complications None Technical Quality Overall image quality was suboptimal due to significant motion. Coronary artery opacification was adequate. Total DLP (Dose-Length Product) is 1257.8 mGy-cm. The reported value represents the total of one or more individual components during the CT acquisition of this date and at this time, and as such, the same value may appear in more than one CT report depending on the interpreting/reporting physicians. COMPARISON None FINDINGS CT Coronary Calcium Scoring LMA (Left Main Artery) = 7 LAD (Left Anterior Descending) = 66 LCX (Left Coronary Circumflex) = 0 RCA (Right Coronary Artery) = 0 Total Calcium Score = 73 using the AJ-130 method. The observed calcium score of 73 is at 76th percentile for subjects of the same age, sex, and race/ethnicity. The interpretation of the calcium heart score is based on the following continuum*: 0 = no calcified plaque detected (risk of coronary artery disease is very low ??? less than 5%) 1-10 = calcium detected in extremely minimal levels (risk of coronary diseases is still low ??? less than 10%) 11-100 = mild levels of plaque detected with certainty (mild or minimal narrowing of heart arteries is likely) 101-400 = definite,at least moderate levels of plaque detected (relatively high risk of a heart attack within 3-5 years) >401-999 = extensive levels of plaque detected (high risk of heart attack, high levels of vascular disease are present, high likelihood of at least one significant coronary narrowing) *The calcium heart score quantifies the burden of coronary calcification/plaque in the coronary arteries. The calcium heart score is not able to evaluate the presence or burden of non-calcified (i.e. soft) plaque. There is also identifiable calcification in the descending aorta, but not the aortic valve, mitral annulus or mitral valve, pericardium, or myocardium. Coronary CT Angiography The coronary arterial system is right dominant. Quantitative Stenosis Grading: Left Main (LM): The left main originates normally from the left sinus of Valsalva. The LM is a short vessel. The LM bifurcates into the left anterior descending artery and left circumflex artery. There is focal calcification in the proximal LM, but grossly no evidence of luminal stenosis. Left Anterior Descending (LAD) and Diagonal Branches: The LAD gives off 4 diagonal branches. There is a mixed calcified/non-calcified plaque in proximal LAD, with approximately up to 70-90% luminal stenosis. The severity of stenosis may be inaccurate due to suboptimal study. There is no evidence of LAD bridge. Left Circumflex (LCX) and Obtuse Marginals (OM): The LCX is a small caliber vessel. The LCX gives off 1 Obtuse Marginal (OM) branch. The LCX and its branches are patent with no evidence of atherosclerosis. Right Coronary Artery (RCA): The RCA originates normally from the right sinus of Valsalva. The RCA gives off a posterior descending artery (PDA) and posterolateral (PL) branches. The RCA and its branches are patent with no evidence of atherosclerosis. Non-Coronary Cardiac Findings: Analysis of the left ventricular (LV) structure and function was performed after 3-D reconstruction of the LV from axial images, with user-corrected automatic contouring for assessment of LV volumes and user-defined reconstruction from oblique planes for measurement of 3-D cardiac structure and function. LVEDV: 137 mL LVESV: 57 mL SV: 80 mL LVEF: 58.7% -The left ventricle is normal in size with normal left ventricular systolic function. -Incomplete opacification of the distal left atrial appendage (filling defect vs. incomplete contast flow distally). Two right pulmonary veins and two left pulmonary veins drain normally into the left atrium. -No pericardial thickening or calcification. -Central and branch pulmonary arteries in the [id number] are unremarkable. -Thoracic aorta within the visualized thoracic aortic-branches in the [id number] is unremarkable. Extracardiac Structures No significant extra-cardiac findings. IMPRESSION -Suboptimal image quality due to significant motion. -Presence of coronary calcification with an Agatston score = 73 using the AJ-130 method. -The observed calcium score of 73 is at 76th percentile for subjects of the same age, sex, and race/ethnicity. -Mixed calcified/non-calcified plaque in proximal LAD, with approximately up to 70-90% luminal stenosis. The severity of stenosis may be inaccurate due to suboptimal study. -CAD-RADS 4A. Management recommendations per ACC/AHA guidelines*, as clinically appropriate. -No significant non-coronary cardiac findings in the visualized segments of the chest. *Recommendations: CAD RADS 0: Reassurance. Consider non-atherosclerotic causes of chest pain. CAD RADS 1: Consider non-atherosclerotic causes of chest pain. Consider preventive therapy and risk factor modification. CAD RADS 2: Consider non-atherosclerotic causes of chest pain. Consider preventive therapy and risk factor modification, particularly for patients with nonobstructive plaque in multiple segments. CAD RADS 3: Consider further functional testing. Consider symptom-guided anti-ischemic and preventive pharmacotherapy as well as risk factor modification per published guideline statements. CAD RADS 4A: Consider further functional testing or invasive coronary angiography with revascularization per published guideline statements. Consider symptom-guided anti-ischemic and preventive pharmacotherapy as well as risk factor modification per published guideline statements. CAD RADS 4B: Invasive coronary angiography recommended with revascularization per published guideline statements. Consider symptom-guided anti-ischemic and preventive pharmacotherapy as well as risk factor modification per published guideline statements. CAD RADS 5: Consider invasive angiography and/or viability assessment with revascularization per published guideline statements. Consider symptom-guided anti-ischemic and preventive pharmacotherapy as well as risk factor modification per published guideline statements. CRITICAL RESULT None COMMUNICATION Per this written report The coronary and cardiac findings of this CCTA were reviewed, reported, and signed by Prabhakar Hurst MD (Decorating Machine Tender) Conclusion Electronically signed by : Mignon Hurst MD 09/22/2023 13:36:29
[2023-09-16 08:10] VITALS: BMI 22.3
[2023-09-16 08:13] VITALS: BP 148/81; PULSE 91; RESP 18; TEMP 36.3; O2SAT 93
[2023-09-16] MEDS: METOPROLOL TARTRATE 50MG TABLET 100 MG PO (08:15)
[2023-09-16 08:27] LABS: Chloride 97 mmol/L (98-107); Potassium 3.5 mmoL/L (3.5-5.1); Sodium 133 mmol/L (136-145)
[2023-09-16 08:29] LABS: Alanine Aminotransferase 19 U/L (12-78); Aspartate Amino Transferase 29 U/L (14-36); Blood Urea Nitrogen 7 mg/dl (7-17); Creatinine Clearance Estimated 50 mL/min (50-200); Estimated Glomerular Filt Rate 100 ml/min (>60); GFR (African American) 121 ML/MIN (>60)
[2023-09-16 08:30] LABS: Albumin Level 3.7 g/dl (3.5-5.0); Albumin/Globulin Ratio 1.4 (1.1-1.8); Alkaline Phosphatase 75 U/L (38-126); Anion Gap 6.5 mEq/L (5-15); Bilirubin,Total 0.5 mg/dl (0.2-1.3); Calcium 8.2 mg/dl (8.4-10.2); Carbon Dioxide 33 mmol/L (22.0-30.0); Globulin 2.7 g/dL (1.3-3.2); Glucose 78 mg/dl (74-100); Total Protein,Serum 6.4 g/dl (6.3-8.2)
[2023-09-16 09:15] VITALS: BP 147/77; PULSE 59; RESP 18; O2SAT 93
[2023-09-16] MEDS: METOPROLOL TARTRATE 5MG/5ML VIAL 5 MG IV (09:16)
[2023-09-16 09:30] VITALS: BP 145/79; PULSE 63; RESP 18; O2SAT 91
[2023-09-16] MEDS: NITROGLYCERIN 0.4MG SL TABLET 0.800000000000000044 MG SL (09:30)
[2023-09-16 09:35] VITALS: BP 115/64; PULSE 59; RESP 18; O2SAT 92
[2023-09-16 09:40] VITALS: BP 109/59; PULSE 63; RESP 18; O2SAT 90
[2023-09-16] MEDS: SODIUM CHLORIDE 0.9% 10ML SYR (RAD ONLY) 10 ML IV (09:42)
[2023-09-16] MEDS: 0.9 % SODIUM CHLORIDE 50 ML VIAL IV (09:42)
[2023-09-16] MEDS: IOPAMIDOL-370 (76%);100ML BOTTLE 85 ML IV (09:42)
[2023-09-16 09:50] VITALS: BP 91/54; PULSE 58; RESP 18; O2SAT 94
== END | disposition home or self-care (01) ==
PROVIDERS: PCP Nurse Practitioner Family; Visit Provider Nurse Practitioner Family
DX: I73.9 Peripheral vascular disease, unspecified (principal); R06.02 Shortness of breath; R94.31 Abnormal electrocardiogram [ECG] [EKG]; I25.84 Coronary atherosclerosis due to calcified coronary lesion
CPT/HCPCS: 75571; 75574; 80053; Q9967

== ENCOUNTER 2023-10-06 17:59 | Outpatient (CLI) | payer MEDICARE, MEDICAID, SELFPAY ==
[2023-10-06 18:54] LABS: T4 (Thyroxine) 8.3 ug/dl (5.53-11.0)
[2023-10-06 19:07] LABS: Thyroid Stimulating Hormone 0.64 uIU/mL (0.465-4.68)
[2023-10-07 08:54] LABS: Triiodothyronine (T3) Free 2.1 pg/mL (2.0-4.4)
== END 2023-10-06 23:59 ==
LOC: LAB.DROPOF 18:01
PROVIDERS: PCP Nurse Practitioner Family; Visit Provider Nurse Practitioner Family
DX: E03.9 Hypothyroidism, unspecified (principal)
CPT/HCPCS: 84436; 84443; 84481

== ENCOUNTER 2023-10-07 08:33 | Day surgery (SDC) | payer MEDICARE, MEDICAID, SELFPAY ==
[2023-10-07] VITALS (13 sets, daily range): BP systolic 72–133; BP diastolic 46–73; PULSE 60–76; RESP 14–20; TEMP 36.1–36.9; O2SAT 93–99; BMI 22.6
--- NOTE | 2023-10-07 07:12 | IR_ITS ---
APPROVED REPORT Patient Location: Outpatient Senior Lead Java Developer: ZAY Loza RT (R) PROCEDURES Left heart catheterization Left ventriculogram Selective coronary angiogram INDICATION Angina pectoris, Abnormal CCTA suggesting LAD disease, Coronary artery disease Informed consent was obtained prior to the procedure. COMPLICATIONS None Estimated Blood Loss: Less than10 mls TECHNIQUE One percent lidocaine used to anesthetize the right anterior aspect of the wrist. The right radial artery was accessed via the Seldinger technique. A 6 Macedonian sheath was placed in the right radial artery. 2.5 mg of Verapamil, 800 mcg of nitroglycerin, 1mg Lidocaine and 5000 U Heparin were given through the arterial sheath. The papa catheter was also used to perform left heart catheterization, left ventriculogram and selective coronary angiogram. At the end of the procedure the sheath was removed good hemostasis was achieved using Traclet band, patient was transferred to the postop holding area in stable condition. ANGIOGRAPHIC RESULTS The left main artery Normal The left anterior descending artery Is a large-caliber vessel which gives rise to a large high first diagonal artery. Proximal to the first diagonal artery the LAD is widely patent. Between the first diagonal artery and first septal pegger dobby looms there is a smooth 20 to 30% stenosis with remaining vessel normal The circumflex artery Nondominant normal The right coronary artery Dominant and has a smooth 10 to 20% proximal stenosis The CRUZ ventriculogram reveals Normal 65% The left ventricular end-diastolic pressure 15 mmHg IMPRESSION Mild nonflow limiting coronary disease as described above Normal ejection fraction Normal left ventricular end-diastolic pressure PLAN 1. Aggressive medical management Electronically signed by : Behzad Clifford MD 10/07/2023 11:09:38
[2023-10-07 09:24] LABS: Basophils # 0.1 K/mm3 (0-0.2); Basophils % 0.8 % (0.1-2.0); Eosinophils # 0.5 K/mm3 (0.0-0.4); Eosinophils % 7.7 % (0.1-12.0); Hematocrit 46.7 % (37.0-47.0); Hemoglobin 16.1 g/dL (12.2-16.2); Lymphocytes # 1.7 K/mm3 (0.7-4.5); Lymphocytes % 26.4 % (10-50); Mean Corpuscular HGB Conc 34.4 g/dL (31.8-35.4); Mean Corpuscular Hemoglobin 33.8 pg (27.0-31.2); Mean Corpuscular Volume 98.3 fl (81-99); Mean Platelet Volume 7.9 fl (7.4-10.4); Monocytes # 0.3 K/mm3 (0.1-1.0); Monocytes % 5.2 % (1.7-9.3); Neutrophils # 3.9 K/mm3 (1.8-7.8); Neutrophils % 59.9 % (37.0-80.0); Platelet Count 216 K/mm3 (142-424); Red Blood Count 4.75 M/mm3 (4.20-5.40); Red Cell Distribution Width 13.1 % (11.5-17.5); White Blood Count 6.5 K/mm3 (4.8-10.8)
[2023-10-07 09:28] LABS: Blood Urea Nitrogen 7 mg/dl (7-17); Carbon Dioxide 30 mmol/L (22.0-30.0); Chloride 94 mmol/L (98-107); Creatinine Clearance Estimated 49 mL/min (50-200); Estimated Glomerular Filt Rate 123 ml/min (>60); GFR (African American) 149 ML/MIN (>60); Sodium 130 mmol/L (136-145)
[2023-10-07 09:29] LABS: Anion Gap 9.9 mEq/L (5-15); Calcium 8.7 mg/dl (8.4-10.2); Glucose 92 mg/dl (74-100); Potassium 3.9 mmoL/L (3.5-5.1)
[2023-10-07] MEDS: NITROGLYCERIN 800MCG/8ML SYR (CATH LAB) 800 MCG IA (10:41)
[2023-10-07] MEDS: VERAPAMIL 2.5MG/ML 2ML VIAL 2.5 MG IV (10:41)
[2023-10-07] MEDS: diphenhydrAMINE 50MG/ML VIAL 50 MG IV (10:41)
[2023-10-07] MEDS: LIDOCAINE 1% 10ML MDV 20 ML IJ (10:41)
[2023-10-07] MEDS: 0.9 % SODIUM CHLORIDE 500 ML 25 ML IV (10:43)
[2023-10-07] MEDS: HEPARIN 1,000 UNITS/500ML NS (CATH LAB) 3000 UNIT IV (10:43)
[2023-10-07] MEDS: HEPARIN 1,000 UNITS/ML 10ML VIAL (CATH LAB) 10000 UNIT IV (11:07)
[2023-10-07] MEDS: FENTANYL 100MCG/2ML VIAL 50 MCG IV (11:08)
[2023-10-07] MEDS: MIDAZOLAM HCL 1MG/1ML 5ML VIAL 1 MG IV (11:08)
[2023-10-07] MEDS: IOPAMIDOL-370 (76%);100ML BOTTLE 50 ML IV (11:40)
== END 2023-10-07 14:08 | disposition home or self-care (01) ==
PROVIDERS: PCP Nurse Practitioner Family; Visit Provider Internal Medicine
DX: R06.02 Shortness of breath (principal); R93.1 Abnormal findings on diagnostic imaging of heart and coronary circulation; R94.31 Abnormal electrocardiogram [ECG] [EKG]; I25.118 Atherosclerotic heart disease of native coronary artery with other forms of angina pectoris; J44.9 Chronic obstructive pulmonary disease, unspecified; Z99.81 Dependence on supplemental oxygen
CPT/HCPCS: 80048; 85025; 93458; 99152; C1725; C1769; J1644; Q9967

== ENCOUNTER 2024-01-03 13:14 | Outpatient (CLI) | payer MEDICARE, MEDICAID, SELFPAY ==
[2024-01-03 14:03] LABS: T4 (Thyroxine) 9.9 ug/dl (5.53-11.0)
[2024-01-03 14:16] LABS: Thyroid Stimulating Hormone 0.07 uIU/mL (0.465-4.68)
[2024-01-04 09:04] LABS: Triiodothyronine (T3) Free 2.2 pg/mL (2.0-4.4)
== END 2024-01-03 23:59 | disposition home or self-care (01) ==
LOC: LAB.DROPOF 13:15
PROVIDERS: PCP Nurse Practitioner Family; Visit Provider Nurse Practitioner Family
DX: E03.9 Hypothyroidism, unspecified (principal)
CPT/HCPCS: 84436; 84443; 84481

== ENCOUNTER 2024-03-21 12:55 | Outpatient (CLI) | payer MEDICARE, MEDICAID, SELFPAY ==
--- NOTE | 2024-03-21 12:55 | US_ITS ---
FINAL REPORT CLINICAL HISTORY: hypothyroidism COMPARISON: 03/10/2023 FINDINGS: Sonographic images of the thyroid gland were obtained. The right thyroid lobe measures 3.7 cm. in length. The left thyroid lobe measures 2.4 cm. in length. The thyroid isthmus measures 0.3 cm. The thyroid gland is small in size with a heterogeneous echotexture which can be seen with chronic thyroiditis. No mass or nodule is identified. IMPRESSION: Small thyroid gland with heterogeneous echotexture. No suspicious mass or nodule. Reviewed, Interpreted and Dictated by Steven Concepcion III, MD Transcribed by Ayla Tate Authenticated and [facility]
[2024-03-21 14:17] LABS: Free T4 (Free Thyroxine) 2.51 ng/dl (0.78-2.19)
[2024-03-22 10:22] LABS: Thyroid Stimulating Hormone < 0.02 uIU/mL (0.465-4.68)
== END 2024-03-21 23:59 | disposition home or self-care (01) ==
LOC: RAD 12:55
PROVIDERS: PCP Nurse Practitioner Family; Visit Provider Nurse Practitioner
DX: E03.9 Hypothyroidism, unspecified (principal)
CPT/HCPCS: 36415; 76536; 84439; 84443

== ENCOUNTER 2024-04-06 15:25 | Outpatient (POV) | payer MEDICARE, MEDICAID, SELFPAY | END 2024-04-06 23:59 | disposition home or self-care (01) | LOC: SC 15:26 | PROVIDERS: Visit Provider Specialist/Technologist | DX: Z00.00 Encounter for general adult medical examination without abnormal findings (principal) ==

== ENCOUNTER 2024-04-28 08:10 | Outpatient (CLI) | payer MEDICARE, MEDICAID, SELFPAY ==
[2024-04-28 08:37] LABS: Blood Urea Nitrogen 5 mg/dl (7-17); Estimated Glomerular Filt Rate 123 ml/min (>60); GFR (African American) 149 ML/MIN (>60)
== END 2024-04-28 23:59 | disposition home or self-care (01) ==
LOC: RAD 08:10
PROVIDERS: PCP Nurse Practitioner Family; Visit Provider Nurse Practitioner
DX: Z01.812 Encounter for preprocedural laboratory examination (principal)
CPT/HCPCS: 36415; 82565; 84520

== ENCOUNTER 2024-08-01 14:50 | Outpatient (CLI) | payer MEDICARE, MEDICAID, SELFPAY ==
[2024-08-01 19:17] LABS: Free T4 (Free Thyroxine) 2.57 ng/dl (0.78-2.19)
[2024-08-01 19:28] LABS: Thyroid Stimulating Hormone < 0.02 uIU/mL (0.465-4.68)
[2024-08-03 08:22] LABS: Triiodothyronine (T3) Free 3.5 pg/mL (2.0-4.4)
== END 2024-08-01 23:59 | disposition home or self-care (01) ==
LOC: LAB.DROPOF 08-02 10:08
PROVIDERS: PCP Nurse Practitioner Family; Visit Provider Nurse Practitioner Family
DX: E03.9 Hypothyroidism, unspecified (principal)
CPT/HCPCS: 84436; 84439; 84443; 84481

== ENCOUNTER 2024-08-21 13:57 | Outpatient (CLI) | payer MEDICARE, MEDICAID, SELFPAY ==
--- NOTE | 2024-08-21 13:58 | CT_ITS ---
FINAL REPORT TECHNIQUE: Thin section axial images were obtained from the lung apices to the upper abdomen by computed tomography. Reformatted images were obtained and reviewed. This study was performed with techniques to keep radiation doses al low as reasonably achievable (ALARA). Individualized dose reduction techniques using automated exposure control or adjustment of mA and/or kV according to the patient's size were employed. CLINICAL HISTORY: lung cancer screening. former smoker. quit 10years ago. 2ppd and smoked 25 years COMPARISON: 06/17/2020 FINDINGS: CHEST CT LOW DOSE 69-year-old female, former smoker who quit 10 years ago, [id number] history. CTDI vol (mGy): 2.9 DLP (mGy-cm): 105.51 There is no axillary adenopathy. There is no mediastinal or hilar mass or adenopathy. The heart is normal in size. Mild coronary artery calcifications are present. There is no pericardial or pleural effusion. There is mild pulmonary scarring. Lung window images demonstrate a new 4 mm nodule in the left upper lobe, best seen on image #24 of series 3. There is a new ground glass opacity measuring 5 mm in size in the lateral right upper lobe, best seen on image #31 of series 3. There are several other less than 5 mm in size nodules present, stable since the prior exam of 2019. Limited images of the upper abdomen are unremarkable. IMPRESSION: Lung-RADS category 3. Recommend 6 month follow up low dose chest CT. Reviewed, Interpreted and Dictated by Steven Concepcion III, MD Transcribed by Norma Barbosa Authenticated and [facility]
--- NOTE | 2024-08-21 13:58 | MM_ITS ---
PROCEDURE INFORMATION: Exam: MG Bilateral Screening 3D Mammography Exam date and time: 08/21/2024 1:56 PM Age: 69 years old Clinical indication: Screening mammogram TECHNIQUE: Imaging protocol: Bilateral Screening tomosynthesis and 2D mammography including computer-aided detection (CAD) when performed. COMPARISON: 1. MG MM DIG SCREENING MAMM BI W/CAD 08/06/2023 10:19 AM 2. MG MM DIG SCREENING MAMM BI W/CAD 08/05/2022 10:54 AM 3. MG MM DIG SCREENING MAMM BI W/CAD 07/10/2021 2:46 PM 4. MG MM DIG MAMM DX UNILAT RT CAD 01/03/2021 1:22 PM FINDINGS: MAMMOGRAPHY: Breast composition: There are scattered areas of fibroglandular density. Mass: None. Architectural distortion: No new or suspicious architectural distortion. Calcifications: No new or suspicious calcifications are present Asymmetric density: No new or suspicious asymmetric density is present Skin thickening: None. Axillary adenopathy: None. IMPRESSION: No mammographic evidence of malignancy. Recommend annual screening mammography unless otherwise clinically indicated. ASSESSMENT: BI-RADS category 1: Negative.
== END 2024-08-21 23:59 | disposition home or self-care (01) ==
LOC: RAD 13:58
PROVIDERS: PCP Nurse Practitioner Family; Visit Provider Nurse Practitioner Family
DX: Z12.31 Encounter for screening mammogram for malignant neoplasm of breast (principal); Z87.891 Personal history of nicotine dependence; Z12.2 Encounter for screening for malignant neoplasm of respiratory organs
CPT/HCPCS: 71271; 77063; 77067

== ENCOUNTER 2024-08-22 13:21 | Outpatient (CLI) | payer MEDICARE, MEDICAID, SELFPAY ==
--- NOTE | 2024-08-22 13:22 | CT_ITS ---
FINAL REPORT TECHNIQUE: Thin section axial CT images with coronal and sagittal reformats were performed through the neck. This study was performed with techniques to keep radiation doses as low as reasonably achievable (ALARA). Individualized dose reduction techniques using automated exposure control or adjustment of mA and/or kV according to the patient's size were employed. CLINICAL HISTORY: thyroid nodule, right sided neck pain COMPARISON: None FINDINGS: CT NECK SOFT TISSUES: No adenopathy or mass lesion is present . Salivary glands are normal. The nasopharynx, hypopharynx, oropharynx and larynx are unremarkable in appearance. 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 IMPRESSION: No acute process. Reviewed, Interpreted and Dictated by Steven Concepcion III, MD Transcribed by Norma Barbosa Authenticated and [facility]
== END 2024-08-22 23:59 | disposition home or self-care (01) ==
LOC: RAD 13:22
PROVIDERS: PCP Nurse Practitioner Family; Visit Provider Nurse Practitioner Family
DX: E04.1 Nontoxic single thyroid nodule (principal); M54.2 Cervicalgia; E03.9 Hypothyroidism, unspecified
CPT/HCPCS: 70490

== ENCOUNTER 2024-10-05 12:20 | Outpatient (CLI) | payer MEDICARE, MEDICAID, SELFPAY ==
[2024-10-05 12:55] LABS: Basophils % 0.6 % (0.1-2.0); Eosinophils # 0.6 K/mm3 (0.0-0.4); Hemoglobin 14.9 g/dL (12.2-16.2); Lymphocytes # 1.3 K/mm3 (0.7-4.5); Lymphocytes % 18.8 % (10-50); Mean Corpuscular HGB Conc 33.9 g/dL (31.8-35.4); Mean Corpuscular Hemoglobin 31.2 pg (27.0-31.2); Mean Corpuscular Volume 92.2 fl (81-99); Mean Platelet Volume 9.6 fl (7.4-10.4); Monocytes # 0.5 K/mm3 (0.1-1.0); Monocytes % 7.6 % (1.7-9.3); Neutrophils # 4.3 K/mm3 (1.8-7.8); Neutrophils % 63.9 % (37.0-80.0); Platelet Count 234 K/mm3 (142-424); Red Blood Count 4.77 M/mm3 (4.20-5.40); Red Cell Distribution Width 11.9 % (11.5-17.5); White Blood Count 6.7 K/mm3 (4.8-10.8)
[2024-10-05 13:36] LABS: Alanine Aminotransferase 20 U/L (12-78); Albumin Level 4.8 g/dl (3.5-5.0); Alkaline Phosphatase 93 U/L (38-126); Aspartate Amino Transferase 43 U/L (14-36); Bilirubin,Direct 0.2 mg/dl (0.0-0.4); Bilirubin,Indirect 0.5 mg/dL (0.0-0.9); Bilirubin,Total 0.7 mg/dl (0.2-1.3); Bilirubin,Unconjugated 0.5 mg/dL (0.0-1.1); Blood Urea Nitrogen 5 mg/dl (7-17); Calcium 10.2 mg/dl (8.4-10.2); Carbon Dioxide 29 mmol/L (22.0-30.0); Chloride 98 mmol/L (98-107); Cholesterol 193 mg/dl (140-200); Estimated Glomerular Filt Rate 159 ml/min (>60); GFR (African American) 193 ML/MIN (>60); Glucose 76 mg/dl (74-100); Sodium 136 mmol/L (136-145); Total Protein,Serum 6.9 g/dl (6.3-8.2); Triglycerides 132 mg/dl (30-150); VLDL Cholesterol 26 mg/dL (0-40)
[2024-10-05 13:40] LABS: Anion Gap 13.1 mEq/L (5-15); Potassium 4.1 mmoL/L (3.5-5.1)
[2024-10-05 13:44] LABS: HDL Cholesterol 93 mg/dl (40-60)
[2024-10-05 13:46] LABS: Chol/HDL Ratio 2.1 (1-3.5)
[2024-10-05 13:48] LABS: Direct LDL Cholesterol 84.91 mg/dL (100-129)
[2024-10-05 13:53] LABS: Free T4 (Free Thyroxine) 1.98 ng/dl (0.78-2.19)
[2024-10-05 14:06] LABS: Thyroid Stimulating Hormone < 0.02 uIU/mL (0.465-4.68)
== END 2024-10-05 23:59 | disposition home or self-care (01) ==
LOC: LAB 12:21
PROVIDERS: PCP Nurse Practitioner Family; Visit Provider Physician Assistant
DX: I25.118 Atherosclerotic heart disease of native coronary artery with other forms of angina pectoris (principal); E03.9 Hypothyroidism, unspecified; I73.9 Peripheral vascular disease, unspecified; R93.1 Abnormal findings on diagnostic imaging of heart and coronary circulation
CPT/HCPCS: 36415; 80048; 80061; 80076; 84439; 84443; 85025

== ENCOUNTER 2024-10-23 14:25 | Outpatient (CLI) | payer MEDICARE, MEDICAID, SELFPAY ==
[2024-10-23 12:28] LABS: Coronavirus 19, PCR Not Detected (NotDetected); Human Rhinovirus Not Detected (NotDetected); Influenza A, PCR Not Detected (NotDetected); Influenza B, PCR Not Detected (NotDetected); Respiratory Syncytial Virus Not Detected (NotDetected)
== END 2024-10-23 23:59 | disposition home or self-care (01) ==
LOC: LAB.DROPOF 14:25
PROVIDERS: PCP Nurse Practitioner Family; Visit Provider Nurse Practitioner Family
DX: R05.9 Cough, unspecified (principal); R09.81 Nasal congestion; R06.02 Shortness of breath
CPT/HCPCS: 87631

== ENCOUNTER 2025-01-29 16:34 | Outpatient (CLI) | payer MEDICARE, MEDICAID, SELFPAY ==
--- OUTSIDE RECORDS SUMMARY | 2025-01-29 16:36 | XMS_ITS | Data Portability ---
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 Plan of Treatment Reminders Order Date Submit Date Provider Last Modified By Organization Details Last Modified Time Details Appointments None recorded. Lab None recorded. Referral None recorded. Procedures None recorded. Surgeries None recorded. Imaging LDCT, chest, for lung cancer screening - 1- Did patient participate in a shared decision-ma sidney session with the provider? YES2- Is patient age between 50-77 years old? YES3- Did patient smoke at least 20 pack year? YES4- Is patient current smoker or quit smoking within the last 15 years? YES5- Is the patient asymptomati c (no signs or symptoms of lung cancer)? YES 2022 024 [facility] (Centralized Scheduling), [address] [place], [address], 5 16:37:08 LDCT, chest, for lung cancer screening 2021 023 [facility] (Centralized Scheduling), [address] [place], [address], 3 15:51:26 Medication Orders None recorded. Patient TargetsNo targets recorded. Patient InstructionsNo instructions recorded. Reason for Referral None Reported. Results Created Date Observation Date Name Description Value Unit Range Abnormal Flag Note LastModifiedBy Organization Detail LastModifiedTime 06/16/20 22 06/16/2022 LDCT, chest , for lung benedicto johnson [facility] [address] [place] [address] Phone: Fax: Name: MARYAM JARA Exam Date: : 1954 Age 66 Gender : F Access ion: [id number] Physic david: ANTONIO DECKER Facili ty: [facility] Facili ty HSV: Outpat ient Exam: CT LOW DOSE LUNG SCREEN ING LOW DOSE SCREEN ING CT SCAN OF THE CHEST WITHOU T CONTRA ST COMPAR TORI: HISTOR Y: Previo us smoker who quit 8 years ago with a 60-pac k-year histor y. PROCED URE: Axial images were obtain ed from the lung apex to the mid abdome n by comput ed tomogr aphy in a low dose screen ing protoc ol. This study was perfor med with techni ques to keep radiat ion doses as low as reason ably achiev able, (ALARA ). CTDI: 1.10 mGy. DLP: 41.55 mGy/cm . FINDIN GS: CHEST: There is no axilla ry adenop athy. There is no hilar or medias tinal adenop athy. Heart size is normal . There is no perica rdial or pleura l effusi on. Limite d images of the upper abdome n are unrema rkable . There is athero sclero sis. There is eviden ce of prior calcif ied granul omatou s diseas e. Modera te emphys ematou s change s are noted. There are scatte red areas of atelec tasis. There is a stable 2 mm nodule identi fied in the left upper lobe on image 42. No acute osseou s abnorm ality is identi fied. IMPRES JAMIN: Lung rads catego ry 2. Contin ued annual low dose screen ing of the chest recomm ended. Images review ed, interp reted and dictat ed by Dr. Morales. Transc ribed by Mook Cabrera PA-C Dictat ed By: Addie Morales Transc ribed By: Addie Morales Transc ribed On: 1:05 PM Electr onical ly signed by: Addie Morales Thank you for referr ing MARYAM JARA to [facility]. 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 PROCED URE: Axial images were obtain ed from the lung apex to the mid abdome n by comput ed tomogr aphy in a low dose screen ing protoc ol. This study was perfor med with techni ques to keep radiat ion doses as low as reason ably achiev able, (ALARA ). CTDI: 1.10 mGy. DLP: 45.69 mGy/cm . FINDIN GS: CHEST: There is no axilla ry adenop athy. There is no hilar or medias tinal adenop athy. There is athero sclero sis. Heart size is normal . There is no perica rdial or pleura l effusi on. Limite d images of the upper abdome n are unrema rkable . Mild emphys ematou s change s are seen in the lungs. There is a stable 2 mm nodule in the left upper lobe on images 53. IMPRES JAMIN: Lung Rads catego ry 2. Contin ued annual low dose screen ing of the chest recomm ended. Images review ed, interp reted and dictat ed by Dr. Morales. Transc ribed by Mook Cabrera PA-C Dictat ed By: ADDIE MORALES Transc ribed By: Addie Morales Transc ribed On: 2022 3:36 PM Electr onical ly signed by: ADDIE MORALES 2022 [facility] Legall y authen ticate d by POPE ADDIE Manrique 2022-09 15:36: 23 CC'ed Logic: Orderi ng Provid er: BRIANNE SHEA Attend ing Provid er: BRIANNE SHEA Referr ing Provid er: BRIANNE SHEA Admitt ing Provid er: BRIANNE SHEA [facility] [address], [place], [address], 07/12/2023 16:05:22 Result Notes None recorded. Problems Name Problem SNOMED Code Status Onset Date Resolution Date Notes Provider Name and Address Organization Details Recorded Time Pulmonary emphysema 82031904 Active Yajaira Lees null, [place] - [facility] - [place] & [place] 2 17:07:38 Dyspnea on exertion 32401885 Active 2021 Antonio Decker MD [address], [place], [address] , [place] - [facility] [place] & [place] 2 12:08:40 Chronic hypoxemic respiratory failure 933014889 Active 2021 Antonio Decker MD [address], [place], [address] , [place] - [facility] - [place] & [place] 2 12:08:54 Tobacco dependence in remission 523843122 Active 2021 Antonio Decker MD [address], [place], [address] , [place] - [facility] - [place] & [place] 12:25:52 Problem Notes None recorded. Procedures Surgical History None recorded. Imaging Results Imaging Date Name Status LastModified by Organiz ation Details LastModified Time 06/16/2022 LDCT, chest, for lung cancer screening completed [facility] [address], [place], [address], 06/16/2022 13:37:22 07/12/2023 LDCT, chest, for lung cancer screening completed [facility] [address], [place], [address], 07/12/2023 16:05:22 Procedure Notes None recorded. Medical Equipment None Reported. Allergies No known drug allergies Medications Name Sig Start Date Stop Date Status Note LastModified by Organization Details LastModified Time cyclobenzap rine 10 mg tablet active Not Available Not Available Not Available doxycycline hyclate 100 mg capsule active Not Available Not Available N ot Available ipratropium 0.5 mg-albutero l 3 mg (2.5 mg base)/3 mL nebulizatio n soln active Not Available Not Available Not Available albuterol sulfate 2.5 mg/3 mL (0.083 %) solution for nebulizatio n Inhale 3 mL 3 times a day by nebulizat ion route. active Not Available Not Available No t Available azithromyci n 250 mg tablet active Not Available Not Available Not Available prednisone 20 mg tablet active Not Available Not Available Not Available peg-electro lyte solution 420 gram oral solution active Not Available Not Available Not Available levothyroxi ne 100 mcg tablet active Not Available Not Available Not Available tobramycin 0.3 % eye drops 11/04 completed Not Available Not Available Not Available montelukast 10 mg tablet Take 1 tablet every day by oral route. 11/04 completed Not Available Not Available Not Available levofloxaci n 500 mg tablet active Not Available Not Available Not Available levofloxaci n 750 mg tablet active Not Available Not Available Not Available fluticasone propionate 50 mcg/actuati on nasal spray,suspe nsion active Not Available Not Available Not Available Ventolin HFA 90 mcg/actuati on aerosol inhaler INHALE 2 PUFFS BY MOUTH EVERY 4 HOURS 2022 active Not Available Not Available Not Avai lable escitalopra m 10 mg tablet active Not Available Not Available Not Available escitalopra m 5 mg tablet active Not Available Not Available Not Available ibandronate 150 mg tablet active Not Available Not Available Not Available albuterol sulfate 06/29 completed Not Available Not Available Not Available levocetiriz ine 5 mg tablet active Not Available Not Available Not Available GaviLyte-G 236 gram-22.74 gram-6.74 gram-5.86 gram oral solution active Not Available Not Available Not Available levothyroxi ne 100 mcg capsule Take 1 capsule every day by oral route. 11/04 completed Not Available Not Available Not Available Prolia 60 mg/mL subcutaneou s syringe Inject 1 mL by subcutane ous route. active Not Available Not Available No t Available loratadine 10 mg capsule Take by oral route. active Not Available Not Available No t Available oxygen active Not Available Not Availa ble Not Available Trelegy Ellipta 100 mcg-62.5 mcg-25 mcg powder for inhalation INHALE 1 PUFF BY MOUTH ONCE A DAY active Not Available Not Available No t Available Clenpiq 10 mg-3.5 gram-12 gram/160 mL oral solution active Not Available Not Available Not Available Vitals Date Recorded Body height Body mass index (BMI) Body weight Body temperature Oxygen saturation Oxygen saturation in Arterial blood by Pulse oximetry Heart rate Systolic blood pressure Diastolic blood pressure Provider Name and Address Organization Details Last Updated DateTime 3 160.02 cm 24.4 kg/m2 95880.9 5 g 97.8 [degF] 97 % 97 % 92 /min 136 mm[Hg] 86 mm[Hg] Trina TAVARES [facility] & [place] 3 11:11:06 Date Recorded Body weight Body mass index (BMI) Body height Body temperature Oxygen saturation Oxygen saturation in Arterial blood by Pulse oximetry Heart rate Systolic blood pressure Diastolic blood pressure Provider Name and Address Organization Details Last Updated DateTime 2 50198.9 3 g 24.8 kg/m2 160.02 cm 97.5 [degF] 97 % 97 % 69 /min 131 mm[Hg] 86 mm[Hg] Trina TAVARES - [facility] & [place] 2 11:50:47 Date Recorded Body height Body mass index (BMI) Body weight Body temperature Oxygen saturation Oxygen saturation in Arterial blood by Pulse oximetry Heart rate Systolic blood pressure Diastolic blood pressure Provider Name and Address Organization Details Last Updated DateTime 3 160.02 cm 23.1 kg/m2 14366.8 g 97.5 [degF] 94 % 94 % 81 /min 131 mm[Hg] 68 mm[Hg] Raul TAVARES - [facility] & [place] 3 10:49:24 Social History Question Answer Notes LastModified by UB. Details LastModified Time Tobacco Smoking Status Former Smoker Trina paige, ANUSHA [facility] & [place] 06/29/2022 10:04:46 When Did You Quit Smoking? 6-10yearssin celastcigare tte 2013 Information not available 07/26/2023 What Is Your Current Pack Years? 30ormorepack years 2PPD Information not available 07/26/2023 At What Age Did You Start Smoking Tobacco? 28 Information not available 07/26/2023 How Many Years Have You Smoked Tobacco? 30 [email or web address] Information not available 06/29/2022 Sex: Unknown Functional Status Question Answer Note LastModified by UB. Details LastModified Time Do you use any illicit or recreational drugs? No [email or web address] Information not available 06/29/2022 What is your level of alcohol consumption? Occasional [email or web address] Information not available 06/29/2022 Mental Status None recorded. Family History Relationship Description Onset Age of this Age Resolved Age Notes LastModified by Organization Details LastModified Time Brother Malignant neoplasm of lung bmoak Not available 2022 10:36:42 Mother Chronic obstructive pulmonary disease [email or web address] Not available 2021 09:43:17 Mother Disorder of thyroid gland [email or web address] Not available 2021 09:43:29 Mother Hypertensive disorder [email or web address] Not available 2021 09:43:43 Mother Family member bmoak Not available 2022 10:36:42 Father Cancerous ulcer bmoak Not available 2022 10:36:42 Father Family member bmoak Not available 2022 10:36:42 Medical History Condition Response Thyroid Disease Y COPD Y Gynecological HistoryNo gynecological history recorded. Obstetrics History GPAL:G 0 P 0 0 0 0 Immunizations Vaccine Type Date Status Note Provider Nam e and Address Organization Details Recorded Time Influenza, split virus, quadrivalent, PF 07/01/2022 completed Antonio Decker MD [address] [facility], [facility] [address], [facility] & [place] 07/01/2022 12:22:49 Influenza, adjuvanted, quadrivalent, PF 07/26/2023 completed Antonio Decker MD [address] [place] [address], [facility] [address] & [place] 07/26/2023 10:58:48 Past Encounters Encounter ID Performer Location Encounter Start Date Encounter Closed Date Diagnosis/Indication Diagnosis SNOMED-CT Code Diagnosis ICD10 Code Diagnosis Note [id number] Antonio Decker MD [facility] Pulmonolo gy [address] [facility],[address] [place] [address] 07/01/2022 11:40:56 07/01/2022 12:07:37 Pulmonary emphysema 34140173 J43.9 Patient instructed to continue with the use of Trelegy regularly and use her Marivel on a p.r.n. basis. Patient declined to participat e in the pulmonary rehab program due to transporta tion issues. Administra tion of influenza vaccine 91994098 Z23 Will administer flu vaccine in the office today. Dyspnea on exertion 6084 5006 R06.09 Patient recommende d to exercise as tolerated and use her Marivel on a p.r.n. basis. Chronic hy poxemic respiratory failure 272813569 J96.11 Patient instructed to use her oxygen as needed to maintain saturation above 90%. Screening for malignant neoplasm of respiratory tract 252193140 Z12.2 Images and report of low-dose CT of the chest done in May were reviewed and discussed with the patient, there is evidence of small pulmonary nodule so will continue with annual testing. The patient has participat ed in a shared decision making session during which potential risk and benefits of LDCT lung cancer screening were discussed. The patient was informed of the importance of adherence to annual screening, impact of comorbidit ies, the ability/wi llingness to undergo diagnosis and treatment. The patient was informed of the importance of smoking cessation and/or maintainin g smoking abstinence , including the offer of Medicare-c over tobacco cessation counseling services, if applicable . The patient is asymptomat ic (no symptoms such as fever, chest pain, new shortness of breath, new or changing cough, coughing up blood, or unexplaine d significan t weight loss). Tobacco de pendence in remission 601555949 F17.201 Patient quit smoking and will continue to monitor. [id number] Antonio Decker MD [address],[facility] [address] [place] [address] 11/04/2022 11:00:25 11/04/2022 11:21:13 Pulmonary emphysema 62340102 J43.9 Patient instructed to continue with the use of Trelegy regularly and use her Marivel on a p.r.n. basis.Rosy lane is contemplat ing joining the pulmonary rehab here or at [facility] and will let me know about her decision later. Patient is up-to-date on her flu vaccine for this season. Dyspnea on exertion 6084 5006 R06.09 Patient recommende d to exercise as tolerated and use her Marivel on a p.r.n. basis. Chronic hy poxemic respiratory failure 194669011 J96.11 Patient instructed to use her oxygen as needed to maintain saturation above 90%. [id number] Antonio Decker MD [address] [place] [address] 07/26/2023 10:35:36 07/26/2023 10:59:44 Administration of influenza vaccine 73934522 Z23 Will administer flu vaccine in the office today. Pulmonary emphysema 8743 3001 J43.9 Patient instructed to continue with the use of Trelegy regularly and use her Marivel on a p.r.n. basis.Rosy lane instructed to call if there is any new symptoms. Dyspnea on exertion 6084 5006 R06.09 Patient recommende d to exercise as tolerated and use her Marivel on a p.r.n. basis. Chronic hy poxemic respiratory failure 013238502 J96.11 Patient instructed to use her oxygen as needed to maintain saturation above 90%. Immunization advised 310 756160 Z71.9 Patient recommende d to receive her COVID-19 vaccinatio n from her pharmacy.P davey recommende d to receive RSV vaccine and will send an order to her pharmacy. Tobacco de pendence in remission 279352154 F17.211 Patient quit smoking about 9 years ago.Images and report of low-dose CT of the chest done in June 2023 were reviewed and discussed with the patient, there is no evidence of malignancy and will continue with annual testing. Screening for malignant neoplasm of respiratory tract 741830811 Z12.2 Images and report of low-dose CT of the chest done in May were reviewed and discussed with the patient, there is evidence of small pulmonary nodule so will continue with annual testing.Th e patient has participat ed in a shared decision making session during which potential risk and benefits of LDCT lung cancer screening were discussed. The patient was informed of the importance of adherence to annual screening, impact of comorbidit ies, the ability/wi llingness to undergo diagnosis and treatment. The patient was informed of the importance of smoking cessation and/or maintainin g smoking abstinence , including the offer of Medicare- over tobacco cessation counseling services, if applicable .The patient is asymptomat ic (no symptoms such as fever, chest pain, new shortness of breath, new or changing cough, coughing up blood, or unexplaine d significan t weight loss). Health Concerns Section Related Observation LastModified by Organization Detai ls LastModified Time None Recorded Concern Status LastModified by Organization Details LastModified Time None Recorded Advance Directives Directive None Recorded Payers Insurance Date Sequence Insurance Name Policy Number Policy Olmos Covered Member ID Olmos Member ID Guarantor Name 07/23/2023 1 [place] Maryam Villalobos [id number] Maryam Villalobos 07/23/2023 2 MEDICAID-[facility] CHOICES - FFS/TRADITIONA L Maryam Villalobos [id number] Maryam Villalobos 07/26/2023 [facility] (MEDICARE REPLACEMENT/AD VANTAGE - HMO) Maryam Villalobos [id number] Maryam Wilfredo 11/04/2022 1 [employer] [facility] (MEDICAID REPLACEMENT - HMO) HIXANUSHA Saxena Wilfredo [id number] Maryam Wilfredo 11/04/2022 1 [employer] [id number] Maryam Wilfredo [id number] Maryam Wilfredo 11/04/2022 1 [employer] [place]AC[place] - HMO) Maryam Wilfredo [id number] Maryam Wilfredo 11/04/[address] [facility] (MEDICAID HMO) Maryam Wilfredo [id number] Maryam Wilfredo Notes Date Note Type Note Provider Name and Address Organization Details Recorded Time 07/01/2022 text/html Patient presents to the office today for follow-up visit. Patient states that she is having worsening shortness of breath at rest and dyspnea on exertion. She is using her Trelegy daily and Marivel about 4 times per day. She denies fever, chills or diaphoresis. No chest pain, angina or palpitation. No PND or orthopnea. Patient denies wheezing or hemoptysis. Patient denies significant change in her weight or appetite. Antonio Decker MD [address] , [place], [address], [facility] & [place] 07/01/2022 12:26:26 11/04/2022 text/html Patient presents to the office today for follow-up visit. Patient states that she is doing fairly well. She is around her baseline shortness of breath and dyspnea exertion. She is using her Trelegy daily and Marivel about once a day or less. And trying to exercise regularly. She denies fever, chills or diaphoresis. No chest pain, angina or palpitation. No PND or orthopnea. Patient denies wheezing or hemoptysis. Patient denies significant change in her weight or appetite. Antonio Decker MD [address] , [place], [address], [facility] 11/04/2022 11:25:37 07/26/2023 text/html Patient presents to the office today for follow-up visit. Patient states that she is around her baseline. No significant shortness breath at rest or worsening dyspnea on exertion. She is using controller regularly and Marivel about once a day and Trelegy daily. She denies fever, chills or diaphoresis. No chest pain, angina or palpitation. No PND or orthopnea. Patient denies wheezing or hemoptysis. Patient denies significant change in her weight or appetite. Patient using oxygen at night. Antonio Decker MD [address], [place], [address], [facility] - [place] - [place] & [place] 07/26/2023 11:03:21 OBGyn Episode No OBEpisode recorded.
[2025-01-29 20:18] LABS: T4 (Thyroxine) 12.1 ug/dl (5.53-11.0)
[2025-01-29 20:20] LABS: Free T4 (Free Thyroxine) 2.07 ng/dl (0.78-2.19)
[2025-01-29 20:32] LABS: Thyroid Stimulating Hormone < 0.02 uIU/mL (0.465-4.68)
[2025-01-31 13:11] LABS: Thyroid Peroxidase Antibodies 14 IU/mL (0-34)
[2025-01-31 16:12] LABS: Thyroglobulin Level <1.0 IU/mL (0.0-0.9)
== END 2025-01-29 23:59 | disposition home or self-care (01) ==
LOC: LAB 16:35
PROVIDERS: PCP Nurse Practitioner Family; Visit Provider Nurse Practitioner Family
DX: E05.90 Thyrotoxicosis, unspecified without thyrotoxic crisis or storm (principal)
CPT/HCPCS: 36415; 84436; 84439; 84443; 86376; 86800

== ENCOUNTER 2025-02-26 10:05 | Outpatient (CLI) | payer MEDICARE, MEDICAID, SELFPAY ==
--- OUTSIDE RECORDS SUMMARY | 2025-02-26 10:08 | XMS_ITS | Data Portability ---
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 Plan of Treatment [...] symptoms of lung cancer)? YES 2022 024 [facility] (Centralized Scheduling), [address] [place], [address], 5 16:37:08 LDCT, chest, for lung cancer screening 2021 023 [facility] (Centralized Scheduling), [address] [place], [address], 3 15:51:26 Medication Orders None recorded. Patient TargetsNo targets recorded. Patient InstructionsNo instructions recorded. Reason for Referral None Reported. Results Created Date Observation Date Name Description Value Unit Range Abnormal Flag Note LastModifiedBy Organization Detail LastModifiedTime 06/16/20 22 06/16/2022 LDCT, chest , for lung benedicto johnson [facility] [address] [place] [address] Phone: Fax: Name: MARYAM JARA Exam Date: : 1954 Age 66 Gender : F Access ion: [id number] Physic david: ANTONIO DECKER Facili ty: [facility] Facili ty HSV: Outpat ient Exam: [...] you for referr ing MARYAM JARA to [facility]. Legall y authen ticate d by POPE ADDIE Manrique 06-16 13:05: 48 CC'ed Logic: Orderi ng Provid er: BRIANNE SHEA Attend ing Provid er: BRIANNE SHEA Referr ing Provid er: BRIANNE SHEA Admitt ing Provid er: BRIANNE SHEA [facility] [address] [place] [address], [address], 06/16/2022 13:37:22 07/12/20 23 07/12/2023 LDCT, chest , for lung cance r darío johnson [facility] [address] [place] [address] Phone: Fax: Name: CYNTHIA MARYAM HERNÁNDEZ Exam Date: 2022 : 1954 Age 68 Gender : F Access ion: [id number] Physic david: ANTONIO DECKER Facili ty: [facility] Facili ty HSV: Outpat ient Exam: [...] [facility] Leg[facility] y authen ticate d by POPE ADDIE Manrique 2022-09 15:36: 23 CC'ed Logic: Orderi ng Provid er: BRIANNE SHEA Attend ing Provid er: BRIANNE SHEA Referr ing Provid er: BRIANNE SHEA Admitt ing Provid er: BRIANNE SHEA [facility] [address], [place], [address], 07/12/2023 16:05:22 Result Notes None recorded. Problems Name Problem SNOMED Code Status Onset Date Resolution Date Notes Provider Name and Address Organization Details Recorded Time Pulmonary emphysema 68793103 Active Yajaira Lees null, [place] - [facility] [place] & [place] 2 17:07:38 Dyspnea on exertion 60241309 Active 2021 Antonio Decker MD [address], [place], [address] , [place] [facility] [place] & [place] 2 12:08:40 Chronic hypoxemic respiratory failure 401573256 Active 2021 Antonio Decker MD [address], [place], [address] , [place] [facility] [place] & [place] 2 12:08:54 Tobacco dependence in remission 610355393 Active 2021 Antonio Decker MD [address], [place], [address] , [place] [facility] [place] & [place] 12:25:52 Problem Notes None recorded. Medical Equipment None Reported. [...] Updated DateTime 3 160.02 cm 24.4 kg/m2 05585.9 5 g 97.8 [degF] 97 % 97 % 92 /min 136 mm[Hg] 86 mm[Hg] Trina TAVARES [facility] 3 11:11:06 Date Recorded Body weight Body mass index (BMI) Body height Body temperature Oxygen saturation Oxygen saturation in Arterial blood by Pulse oximetry Heart rate Systolic blood pressure Diastolic blood pressure Provider Name and Address Organization Details Last Updated DateTime 2 52351.9 3 g 24.8 kg/m2 160.02 cm 97.5 [degF] 97 % 97 % 69 /min 131 mm[Hg] 86 mm[Hg] Trina TAVARES [facility] & [place] 2 11:50:47 Date Recorded Body height Body mass index (BMI) Body weight Body temperature Oxygen saturation Oxygen saturation in Arterial blood by Pulse oximetry Heart rate Systolic blood pressure Diastolic blood pressure Provider Name and Address Organization Details Last Updated DateTime 3 160.02 cm 23.1 kg/m2 90623.8 g 97.5 [degF] 94 % 94 % 81 /min 131 mm[Hg] 68 mm[Hg] Raul MARRERO [facility] & [place] 3 10:49:24 Social History Question Answer Notes LastModified by Organizat ion Details LastModified Time Tobacco Smoking Status Former Smoker Trina paige, [facility] & [place] 06/29/2022 10:04:46 When Did You Quit Smoking? 6-10yearssin brady tte 2013 Information not available 07/26/2023 What Is Your Current Pack Years? 30ormorepack years 2PPD Information not available 07/26/2023 At What Age Did You Start Smoking Tobacco? 28 Information not available 07/26/2023 How Many Years Have You Smoked Tobacco? 30 [email or web address] Information not available 06/29/2022 Sex: Unknown Functional Status Question Answer Note LastModified by Organizat ion Details LastModified Time Do you use any illicit or recreational drugs? No [email or web address] Information not available 06/29/2022 What is your level of alcohol consumption? Occasional [email or web address] Information not available 06/29/2022 Mental Status None recorded. Family History Relationship Description Onset Age of this Age Resolved Age Notes LastModified by Organization Details LastModified Time Brother Malignant neoplasm of lung bmoak Not available 2022 10:36:42 Mother Chronic obstructive pulmonary disease [email or web address] Not available 2021 09:43:17 Mother Disorder of thyroid gland [email or web address] Not available 2021 09:43:29 Mother Hypertensive disorder [email or web address] Not available 2021 09:43:43 Mother Family member [...] quadrivalent, PF 07/01/2022 completed Antonio Decker MD [address] [facility], [place], [address], [facility] & [place] 07/01/2022 12:22:49 Influenza, adjuvanted, quadrivalent, PF 07/26/2023 completed Antonio Decker MD [address] [facility], [place], [address], [facility] & [place] 07/26/2023 10:58:48 Past Encounters Encounter ID Performer Location Encounter Start Date Encounter Closed Date Diagnosis/Indication Diagnosis SNOMED-CT Code Diagnosis ICD10 Code Diagnosis Note [id number] Antonio Decker MD [facility] [address] [facility] [place] [address] 07/01/2022 11:40:56 07/01/2022 12:07:37 Pulmonary emphysema 31427046 J43.9 Patient instructed to continue with the use of Trelegy regularly and use her Marivel on a p.r.n. basis. Patient declined to participat e in the pulmonary rehab program due to transporta tion issues. Administra tion of influenza vaccine 43604740 Z23 Will administer flu vaccine in the office today. Dyspnea on exertion 6084 5006 R06.09 Patient recommende d to exercise as tolerated and use her Marivel on a p.r.n. basis. Chronic hy poxemic respiratory failure 395733782 J96.11 Patient instructed to use her oxygen as needed to maintain saturation above 90%. Screening for malignant neoplasm of respiratory tract 328420745 Z12.2 Images and report of low-dose CT [...] weight loss). Tobacco de pendence in remission 890905042 F17.201 Patient quit smoking and will continue to monitor. [id number] Antonio Decker MD [facility] gy [address] [facility] [place] [address] 11/04/2022 11:00:25 11/04/2022 11:21:13 Pulmonary emphysema 68710372 J43.9 Patient instructed to continue with the use of Trelegy regularly and use her Marivel on a p.r.n. basis.Rosy lane is contemplat ing joining the pulmonary rehab here or at [facility] and will let me know about her decision later. Patient is up-to-date on her flu vaccine for this season. Dyspnea on exertion 6084 5006 R06.09 Patient recommende d to exercise as tolerated and use her Marivel on a p.r.n. basis. Chronic hy poxemic respiratory failure 549017688 J96.11 Patient instructed to use her oxygen as needed to maintain saturation above 90%. [id number] Antonio Decker MD [facility] [address] [facility] [place] [address] 07/26/2023 10:35:36 07/26/2023 10:59:44 Administration of influenza vaccine 23839122 Z23 Will administer flu vaccine in the [...] p.r.n. basis. Chronic hy poxemic respiratory failure 572025079 J96.11 Patient instructed to use her oxygen as needed to maintain saturation above 90%. Immunization advised 310 617804 Z71.9 Patient recommende d to receive her COVID-19 vaccinatio n from her pharmacy.Hal mariscal recommende d to receive RSV vaccine and will send an order to her pharmacy. Tobacco de pendence in remission 376826024 F17.211 Patient quit smoking about 9 years ago.Images and report of low-dose CT of the chest done in June 2023 were reviewed and discussed with the patient, there is no evidence of malignancy and will continue with annual testing. Screening for malignant neoplasm of respiratory tract 889475342 Z12.2 Images and report of low-dose CT [...] Olmos Member ID Guarantor Name 07/23/2023 1 [place] Maryam M Wilfredo [id number] Maryam Wilfredo 07/23/2023 2 MEDICAID-[facility] HEALTH CHOICES - FFS/TRADITIONA L Maryam M Wilfredo [id number] Maryam Wilfredo 07/26/2023 [facility] [address] (MEDICARE REPLACEMENT/AD VANTAGE - HMO) Maryam M Wilfredo [id number] Maryam Wilfredo 11/04/2022 1 [employer] - [facility] [place] (MEDICAID REPLACEMENT - HMO) [id number] Maryam M Wilfredo [id number] Maryam Wilfredo 11/04/2022 1 [employer] ([place] HIXKY Maryam Wilfredo [id number] Maryam Wilfredo 11/04/2022 1 [employer] - [place] (MEDICAID REPLACEMENT - HMO) Maryam Wilfredo [id number] Maryam Wilfredo 11/04/2022 2 [facility] (MEDICAID HMO) Maryam Wilfredo [id number] Maryam Wilfredo Notes Date Note Type Note [...] or appetite. Antonio Decker MD [address], [place], [address], [facility] & [place] 07/01/2022 12:26:26 11/04/2022 text/html Patient presents to [...] or appetite. Antonio Decker MD [address], [place], [address], [facility] & [place] 11/04/2022 11:25:37 07/26/2023 text/html Patient presents to [...] using oxygen at night. Antonio Decker MD [address], [place], [address] & [place] 07/26/2023 11:03:21 OBGyn Episode No OBEpisode recorded.
--- OUTSIDE RECORDS SUMMARY | 2025-02-26 10:09 | XMS_ITS | Clinical Summary ---
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 Name Role Phone Khoi Gonzalez MD Primary Care Provider Immunizations Immunization Administration Dates Next Due Pneumococcal Conjugate PCV 13 01/15/2015 Family History Medical History Relation Name Comments Lung cancer Brother 1 Throat cancer Brother 2 Relation Name Status Comments Brother 1 Brother 2 Social History Tobacco Use Types Packs/Day Years Used Date Smoking Tobacco: Former Alcohol Use Standard Drinks/Week Comments Yes 0 (1 standard drink = 0.6 oz pur e alcohol) Comments Unknown Sex and Gender Information Value Date Recorded Sex Assigned at Not on file Legal Sex Female 8:20 PM EDT Gender Identity Not on file Sexual Orientation Not on file Last Filed Vital Signs Vital Sign Reading Time Taken Comments Blood Pressure - - Pulse - - Temperature - - Respiratory Rate - - Oxygen Saturation - - Inhaled Oxygen Concentration - - Weight 64.4 kg (142 lb) 05/06/2016 11:21 AM EDT Height 157.5 cm (5' 2 ) 05/06/2016 11:21 AM EDT Body Mass Index 25.97 05/06/2016 11:21 AM EDT Plan of Treatment Not on file Care Teams Assistant Store Leader Relationship Specialty Start Date End Date Khoi Gonzalez MD [address] [place] [address] #1 #1 ANUSHA Mackenzie PCP - General 01/31/21
--- NOTE | 2025-02-26 10:15 | CT_ITS ---
FINAL REPORT TECHNIQUE: Axial images were obtained through the chest without contrast. Sagittal and coronal multiplanar reconstructions were performed. This study was performed with techniques to keep radiation doses as low as reasonably achievable (ALARA). Individualized dose reduction techniques using automated exposure control or adjustment of mA and/or kV according to the patient's size were employed. CLINICAL HISTORY: Lung nodules--schedule after 02/23/25 COMPARISON: 08/21/2024 FINDINGS: CT CHEST: Mild biapical pleural and parenchymal scarring is noted. The previously seen nodule in the left upper lobe on the prior exam measuring 4 mm in size is slightly smaller on the current exam, measuring 2 mm in size and best seen on image #66 of series 3. The ill-defined ground glass opacity in the peripheral right upper lobe is stable in appearance, measuring 5 mm in size, and best seen on image #85 of series 3. The heart size is normal. There is no pericardial or pleural effusion. Limited images of the upper abdomen are unremarkable. IMPRESSION: Previously seen nodule in the left upper lobe on the prior exam of 08/21/2024 is slightly smaller on the current exam as described. The ill-defined ground glass opacity in the peripheral right upper lobe is stable in appearance. Recommend return to LDCT schedule for further evaluation. Reviewed, Interpreted and Dictated by Billy Chua MD Transcribed by Norma Barbosa Authenticated and [facility]
[2025-02-26 11:17] LABS: Chol/HDL Ratio 2.7 (1-3.5); Cholesterol 230 mg/dl (140-200); HDL Cholesterol 86 mg/dl (40-60); Triglycerides 118 mg/dl (30-150); VLDL Cholesterol 24 mg/dL (0-40)
[2025-02-26 11:29] LABS: Direct LDL Cholesterol 119.62 mg/dL (100-129)
[2025-02-26 11:49] LABS: Thyroid Stimulating Hormone < 0.02 uIU/mL (0.465-4.68)
== END 2025-02-26 23:59 | disposition home or self-care (01) ==
LOC: RAD 10:06
PROVIDERS: PCP Nurse Practitioner Family; Visit Provider Nurse Practitioner Family
DX: R91.8 Other nonspecific abnormal finding of lung field (principal); J44.9 Chronic obstructive pulmonary disease, unspecified; I25.10 Atherosclerotic heart disease of native coronary artery without angina pectoris; E05.90 Thyrotoxicosis, unspecified without thyrotoxic crisis or storm
CPT/HCPCS: 36415; 71250; 80061; 84443

== ENCOUNTER 2025-03-26 09:40 | Outpatient (CLI) | payer MEDICARE, MEDICAID, SELFPAY ==
--- OUTSIDE RECORDS SUMMARY | 2025-03-26 09:54 | XMS_ITS | Data Portability ---
Author Organization [facility] [place] & ELIDA Martinez ADMIN Address [address] [place] [address] Care Team Providers Care Xray Tech Name Role Phone YAHIR SANDHU Primary Care Provider [phone] Assessment No assessment recorded. Plan of Treatment Reminders Order Date Submit Date Provider Last Modified By Organization Details Last Modified Time Details Appointments None recorded. Lab None recorded. Referral None recorded. Procedures None recorded. Surgeries None recorded. Imaging LDCT, chest, for lung cancer screening - 1- Did patient participate in a shared decision-ma sidney session with the provider? YES 2- Is patient age between 50-77 years old? YES 3- Did patient smoke at least 20 pack year? YES 4- Is patient current smoker or quit smoking within the last 15 years? YES 5- Is the patient asymptomati c (no signs or symptoms of lung cancer)? YES 2022 024 [facility] (Centralized Scheduling), [address] [place], [address], 5 16:37:08 LDCT, chest, for lung cancer screening 2021 023 [facility] (Centralized Scheduling), [address] [place], [address], 3 15:51:26 Medication Orders None recorded. Patient TargetsNo targets recorded. Patient InstructionsNo instructions recorded. Reason for Referral None Reported. Results Created Date Observation Date Name Description Value Unit Range Abnormal Flag Note LastModifiedBy Organization Detail LastModifiedTime 06/16/20 22 06/16/2022 LDCT, chest , for lung cance r scree elizabeth [facility] [address] [place] [address] Phone: Fax: Name: MARYAM JARA Exam Date: : 1954 Age 66 Gender : F Access ion: [id number] Physic david: ANTONIO DECKER Facili ty: [facility] Facili ty HSV: Outpat ient Exam: CT [...] you for referr ing MARYAM JARA to [facility]. Legall y authen ticate d by POPE ADDIE Manrique 06-16 13:05: 48 CC'ed Logic: Orderi ng Provid er: BRIANNE SHEA Attend ing Provid er: BRIANNE SHEA Referr ing Provid er: BRIANNE SHEA Admitt ing Provid er: [facility] [address] [facility], [place], [address], 06/16/2022 13:37:22 07/12/20 23 07/12/2023 LDCT, chest , for lung cance r skipe elizabeth [facility] [address] [place] [address] Phone: Fax: Name: CYNTHIA MARYAM HERNÁNDEZ Exam Date: 2022 : 1954 Age 68 Gender : F Access ion: [id number] Physic david: ANTONIO DECKER Facili ty: [facility] Facili ty HSV: Outpat ient Exam: CT [...] radiat ion doses as low as reason ablbarbara louis, (SAM ). CTDI: 1.10 mGy. DLP: 45.69 mGy/cm [...] you for referr ing MARYAM JARA to [facility]. Legall y authen ticate d by POPE ADDIE Manrique 2022- 15:36: 23 CC'ed Logic: Orderi ng Provid er: BRIANNE SHEA Attend ing Provid er: BRIANNE SHEA Referr ing Provid er: BRIANNE SHEA Admitt ing Provid er: BRIANNE SHEA [facility] - [facility] Therapy [address] [place] [address], [address], 07/12/2023 16:05:22 Result Notes Documentation Provider Name and Address Organization Details Recorded Time Ldct, Chest, For Lung Cancer Screening : [address] [address] Name: MARYAM VILLALOBOS Exam Date: 07/12/2023 : 1955 Age 68 Gender: F Physician: ANTONIO DECKER Facility: [facility] Facility HSV: Outpatient Exam: CT LOW DOSE LUNG SCREENING LOW DOSE SCREENING CT SCAN OF THE CHEST WITHOUT CONTRAST COMPARISON: 06/16/2022 HISTORY: Former smoker who quit 9 years ago with a 93-mjiy-afrb history. PROCEDURE: Axial images were obtained from the lung apex to the mid abdomen by computed tomography in a low dose screening protocol. This study was performed with techniques to keep radiation doses as low as reasonably achievable, (ALARA). CTDI: 1.10 mGy. DLP: 45.69 mGy/cm. FINDINGS: CHEST: There is no axillary adenopathy. There is no hilar or mediastinal adenopathy. There is atherosclerosis. Heart size is normal. There is no pericardial or pleural effusion. Limited images of the upper abdomen are unremarkable. Mild emphysematous changes are seen in the lungs. There is a stable 2 mm nodule in the left upper lobe on images 53. IMPRESSION: Lung Rads category 2. Continued annual low dose screening of the chest recommended. Images reviewed, interpreted and dictated by Dr. Morales. Transcribed by Mook Cabrera PA-C Dictated By: ADDIE MORALES Transcribed By: Addie Morales Transcribed On: 07/12/2023 3:36 PM Electronically signed by: ADDIE MORALES 07/12/2023 Thank you for referring MARYAM VILLALOBOS to [facility]. Legally authenticated by POPE ADDIE Manrique 2023-07-12 15:36:23 CC'ed Logic: Ordering Provider: BRIANNE SHEA Attending Provider: BRIANNE SHEA Referring Provider: BRIANNE SHEA Admitting Provider: BRIANNE Decker MD [address], [place], [address], [place] [facility] & [place] 07/12/2023 16:05:22 Problems Name Problem SNOMED Code Status Onset Date Resolution Date Notes Provider Name and Address Organization Details Recorded Time Pulmonary emphysema 93806613 Active Yajaira Lees null, [place] - [facility] & [place] 2 17:07:38 Dyspnea on exertion 96356264 Active 2021 Antonio Decker MD [address], [place], [address] , [place] - [facility] - [facility] & [place] 2 12:08:40 Chronic hypoxemic respiratory failure 973930401 Active 2021 Antonio Decker MD [address], [place], [address] , [place] - [facility] - [facility] & [place] 2 12:08:54 Tobacco dependence in remission 808889336 Active 2021 Antonio Decker MD [address], [place], [address] , [place] - [facility] - [place] & [place] 12:25:52 Problem Notes None recorded. Medical Equipment [...] blood by Pulse oximetry Heart rate Systolic And Diastolic Provider Name and Address Organization Details Last Updated DateTime 3 160.02 cm 24.4 kg/m2 86966.9 5 g 97.8 [degF] 97 % 97 % 92 /min 136/86 mm[Hg] Trina TAVARES [facility] 3 11:11:06 Date Recorded Body weight Body mass index (BMI) Body height Body temperature Oxygen saturation Oxygen saturation in Arterial blood by Pulse oximetry Heart rate Systolic And Diastolic Provider Name and Address Organization Details Last Updated DateTime 2 72846.9 3 g 24.8 kg/m2 160.02 cm 97.5 [degF] 97 % 97 % 69 /min 131/86 mm[Hg] Trina TAVARES [facility] & [place] 2 11:50:47 Date Recorded Body height Body mass index (BMI) Body weight Body temperature Oxygen saturation Oxygen saturation in Arterial blood by Pulse oximetry Heart rate Systolic And Diastolic Provider Name and Address Organization Details Last Updated DateTime 3 160.02 cm 23.1 kg/m2 74097.8 g 97.5 [degF] 94 % 94 % 81 /min 131/68 mm[Hg] Raul pereira [facility] & [place] 3 10:49:24 Social History Question Answer Notes LastModified by Organizat ion Details LastModified Time Tobacco Smoking Status Former Smoker Trina paige, [facility] & [place] 06/29/2022 10:04:46 When Did You Quit Smoking? 6-10yearssin celastcigare tte 2013 Information not available 07/26/2023 What Is Your Current Pack Years? 30ormorepack years 2PPD Information not available 07/26/2023 At What Age Did You Start Smoking Tobacco? 28 Information not available 07/26/2023 How Many Years Have You Smoked Tobacco? 30 [email or web address] Information not available 06/29/2022 Sex: Unknown Functional Status Question Answer Note LastModified by Organizat ion Details LastModified Time Do you use any illicit or recreational drugs? No [email or web address] Information not available 06/29/2022 What is your level of alcohol consumption? Occasional Information not available 06/29/2022 Mental Status None recorded. Family History Relationship Description Onset Age of this Age Resolved Age Notes LastModified by Organization Details LastModified Time Brother Malignant neoplasm of lung bmoak Not available 2022 10:36:42 Mother Chronic obstructive pulmonary disease [email or web address] Not available 2021 09:43:17 Mother Disorder of thyroid gland [email or web address] Not available 2021 09:43:29 Mother Hypertensive disorder [email or web address] Not available 2021 09:43:43 Mother Family member [...] quadrivalent, PF 07/01/2022 completed Antonio Decker MD [address], [place], [address], [facility] & [place] 07/01/2022 12:22:49 Influenza, adjuvanted, quadrivalent, PF 07/26/2023 completed Antonio Decker MD [address] [facility], [place], [address], [facility] - [facility] & [place] 07/26/2023 10:58:48 Past Encounters Encounter ID Performer Location Encounter Start Date Encounter Closed Date Diagnosis/Indication Diagnosis SNOMED-CT Code Diagnosis ICD10 Code Diagnosis Note [id number] Antonio Decker MD [facility] Pul[facility] [address] [place] [address] 07/01/2022 11:40:56 07/01/2022 12:07:37 Pulmonary emphysema 26051906 J43.9 Patient instructed to continue with the use of Trelegy regularly and use her Marivel on a p.r.n. basis. Patient declined to participat e in the pulmonary rehab program due to transporta tion issues. Administra tion of influenza vaccine 94889358 Z23 Will administer flu vaccine in the office today. Dyspnea on exertion 6084 5006 R06.09 Patient recommende d to exercise as tolerated and use her Marivel on a p.r.n. basis. Chronic hy poxemic respiratory failure 644059452 J96.11 Patient instructed to use her oxygen as needed to maintain saturation above 90%. Screening for malignant neoplasm of respiratory tract 444302366 Z12.2 Images and report of low-dose CT [...] weight loss). Tobacco de pendence in remission 377857695 F17.201 Patient quit smoking and will continue to monitor. [id number] Antonio Decker MD [facility] [address] [facility],[address] [place] [address] 11/04/2022 11:00:25 11/04/2022 11:21:13 Pulmonary emphysema 99681092 J43.9 Patient instructed to continue with the use of Trelegy regularly and use her Marivel on a p.r.n. basis.Rosy [place] is contemplat ing joining the pulmonary rehab here or at [facility] and will let me know about her decision later. Patient is up-to-date on her flu vaccine for this season. Dyspnea on exertion 6084 5006 R06.09 Patient recommende d to exercise as tolerated and use her Marivel on a p.r.n. basis. Chronic hy poxemic respiratory failure 699377568 J96.11 Patient instructed to use her oxygen as needed to maintain saturation above 90%. [id number] Antonio Decker MD [facility] [address] [facility],[address] [place] [address] 07/26/2023 10:35:36 07/26/2023 10:59:44 Administration of influenza vaccine 45950535 Z23 Will administer flu vaccine in the [...] p.r.n. basis. Chronic hy poxemic respiratory failure 789191411 J96.11 Patient instructed to use her oxygen as needed to maintain saturation above 90%. Immunization advised 310 948385 Z71.9 Patient recommende d to receive her COVID-19 vaccinatio n from her pharmacy.Hal mariscal recommende d to receive RSV vaccine and will send an order to her pharmacy. Tobacco de pendence in remission 081956597 F17.211 Patient quit smoking about 9 years ago.Images and report of low-dose CT of the chest done in June 2023 were reviewed and discussed with the patient, there is no evidence of malignancy and will continue with annual testing. Screening for malignant neoplasm of respiratory tract 898525136 Z12.2 Images and report of low-dose CT [...] [place] Member ID Guarantor Name 07/23/2023 1 [place] (MEDICARE) Maryam M Wilfredo [id number] Maryam Wilfredo 07/23/2023 2 MEDICAID-[facility] HEALTH CHOICES - FFS/TRADITIONA L Maryam M Wilfredo [id number] Maryam Wilfredo 07/26/2023 [facility] (MEDICARE REPLACEMENT/AD VANTAGE - HMO) Maryam M Wilfredo [id number] Maryam Wilfredo 11/04/2022 1 [employer] [place] (MEDICAID REPLACEMENT - HMO) HIXKY Maryam M Wilfredo [id number] Maryam Wilfredo 11/04/2022 1 [employer] (HMO) [employer]IXKY Maryam Wilfredo [id number] Maryam Wilfredo 11/04/2022 1 [employer] [place] (MEDICAID REPLACEMENT - HMO) Maryam Wilfredo [id number] Maryam Wilfredo 11/04/2022 2 [facility] (MEDICAID HMO) Maryam Wilfredo [id number] Maryam Wilfredo Notes Date Note Type Note [...] appetite. Antonio Decker MD [address], [place], [address], [facility] & [place] 07/01/2022 12:26:26 11/04/2022 text/html Patient presents to [...] appetite. Antonio Decker MD [address], [place], [address], [facility] & [place] 11/04/2022 11:25:37 07/26/2023 text/html Patient presents to [...] night. Antonio Decker MD [address], [place], [address], [facility] & [place] 07/26/2023 11:03:21 OBGyn Episode No OBEpisode recorded.
--- OUTSIDE RECORDS SUMMARY | 2025-03-26 09:54 | XMS_ITS | Clinical Summary ---
Author Organization Healthcare Address [address] [place] [id number] Care Team Providers Care Billboard Poster Helper Name Role Phone Khoi Gonzalez MD Primary Care Provider [phone] Immunizations Immunization Administration Dates Next Due Pneumococcal [...] of Treatment Not on file Care Teams Billboard Poster Helper Relationship Specialty Start Date End Date Khoi Gonzalez MD [address] [place] [address] #1 #1 ANUSHA Mackenzie PCP - General 01/31/21
[2025-03-26 10:46] LABS: Cholesterol 198 mg/dl (140-200); HDL Cholesterol 81 mg/dl (40-60); Triglycerides 90 mg/dl (30-150)
[2025-03-26 11:03] LABS: Free T4 (Free Thyroxine) 2.07 ng/dl (0.78-2.19)
[2025-03-26 11:20] LABS: Thyroid Stimulating Hormone < 0.02 uIU/mL (0.465-4.68)
[2025-03-27 08:32] LABS: Triiodothyronine (T3) Free 3.0 pg/mL (2.0-4.4)
== END 2025-03-26 23:59 | disposition home or self-care (01) ==
LOC: LAB 09:41
PROVIDERS: PCP Nurse Practitioner Family; Visit Provider Nurse Practitioner Family
DX: E05.90 Thyrotoxicosis, unspecified without thyrotoxic crisis or storm (principal); I25.10 Atherosclerotic heart disease of native coronary artery without angina pectoris
CPT/HCPCS: 36415; 80061; 84439; 84443; 84481

== ENCOUNTER 2025-04-23 12:13 | Outpatient (CLI) | payer MEDICARE, MEDICAID, SELFPAY ==
[2025-04-23 15:59] LABS: T4 (Thyroxine) 13.3 ug/dl (5.53-11.0)
[2025-04-23 16:00] LABS: Free T4 (Free Thyroxine) 2.12 ng/dl (0.78-2.19)
[2025-04-23 16:13] LABS: Thyroid Stimulating Hormone < 0.02 uIU/mL (0.465-4.68)
[2025-04-24 10:12] LABS: Triiodothyronine (T3) Free 3.3 pg/mL (2.0-4.4)
--- OUTSIDE RECORDS SUMMARY | 2025-04-24 14:30 | XMS_ITS | Clinical Summary ---
Author Organization Healthcare Address [address] [place] [id number] Care Team Providers Care Presentation Designer Name Role Phone Khoi Gonzalez MD Primary Care Provider [phone] Immunizations Immunization Administration Dates Next Due Pneumococcal [...] of Treatment Not on file Care Teams Presentation Designer Relationship Specialty Start Date End Date Khoi Gonzalez MD [address] [place] [address] #1 #1 ANUSHA Mackenzie PCP - General 01/31/21
== END 2025-04-23 23:59 | disposition home or self-care (01) ==
LOC: LAB.DROPOF 04-24 14:27
PROVIDERS: PCP Nurse Practitioner Family; Visit Provider Nurse Practitioner Family
DX: E04.1 Nontoxic single thyroid nodule (principal); E03.9 Hypothyroidism, unspecified
CPT/HCPCS: 84436; 84439; 84443; 84481

== ENCOUNTER 2025-04-25 09:51 | Outpatient (CLI) | payer MEDICARE, MEDICAID, SELFPAY ==
--- OUTSIDE RECORDS SUMMARY | 2025-04-25 09:57 | XMS_ITS | Clinical Summary ---
Author Organization Healthcare Address [address] [place] [id number] Care Team Providers Care Component Overhaul Operator Name Role Phone Khoi Gonzalez MD Primary Care Provider [phone] Immunizations Immunization Administration Dates Next Due Pneumococcal [...] of Treatment Not on file Care Teams Component Overhaul Operator Relationship Specialty Start Date End Date Khoi Gonzalez MD [address] [place] [address] #1 #1 ANUSHA Mackenzie PCP - General 01/31/21
--- NOTE | 2025-04-25 10:00 | US_ITS ---
FINAL REPORT TECHNIQUE: Real-time grayscale and color ultrasound of the thyroid was performed. CLINICAL HISTORY: thyroid nodule COMPARISON: 03/21/2024 FINDINGS: The thyroid gland measures 3.0 x 1.0 x 1.1 cm on the right and 2.5 x 0.9 x 0.8 cm on the left. The isthmus measures 2 mm. The thyroid gland is small and heterogeneous consistent with chronic thyroiditis. Nodules: Right upper pole TR 4 hypoechoic nodule measuring 5 x 3 mm IMPRESSION: Small heterogeneous thyroid gland consistent with chronic thyroiditis. 5 mm TR 4 right nodule. No follow-up required per TI-RADS criteria. Reviewed, Interpreted and Dictated by Billy Chua MD Transcribed by Ayla Tate Authenticated and [facility]
== END 2025-04-25 23:59 | disposition home or self-care (01) ==
LOC: RAD 09:52
PROVIDERS: PCP Nurse Practitioner Family; Visit Provider Nurse Practitioner Family
DX: E05.10 Thyrotoxicosis with toxic single thyroid nodule without thyrotoxic crisis or storm (principal)
CPT/HCPCS: 76536

== ENCOUNTER 2025-07-23 08:55 | Outpatient (CLI) | payer MEDICARE, MEDICAID, SELFPAY ==
--- OUTSIDE RECORDS SUMMARY | 2025-07-23 09:01 | XMS_ITS | Clinical Summary ---
Author Organization Healthcare Address [address] [place] [id number] Care Team Providers Care Clinical Immunologist Name Role Phone Khoi Gonzalez MD Primary Care Provider [phone] Immunizations Immunization Administration Dates Next Due Pneumococcal [...] of Treatment Not on file Care Teams Clinical Immunologist Relationship Specialty Start Date End Date Khoi Gonzalez MD [address] [place] [address] #1 #1 ANUSHA Mackenzie PCP - General 01/31/21
--- NOTE | 2025-07-23 09:15 | XR_ITS ---
FINAL REPORT TECHNIQUE: Bone densitometry calculations of the lumbar spine and bilateral hips were obtained. CLINICAL HISTORY: Osteoporosis prior in 2019 COMPARISON: None FINDINGS: Using L1-4, the bone mineral density of the spine is 0.848 g/cm2, corresponding to T-score of -1.8 and a Z score of 0.2. This is within the range of osteopenia. Using the left hip, the bone mineral density of the femoral neck is 0.526 g/cm2, corresponding to a T-score of - 2.9 and a Z-score of -1.2. This is within the range of osteoporosis. Using the right hip, the bone mineral density of the femoral neck is 0.5 to 1 g/cm?, corresponding to a T-score of -3.0 and a Z-score of -1.3. This is within the range of osteoporosis. NOTE: T-score: Standard deviation compared with peak bone mass of young adult mean. *Following the recommendations of the International Society of Bone densitometry, classification of hip BMD is based on the lower of two T-scores; total hip or femoral neck. IMPRESSION: 1. Bone mineral density of the lumbar spine within the range of osteopenia. 2. Bone mineral density of the bilateral femoral neck within the range of osteoporosis. Reviewed, Interpreted and Dictated by Joanie Gutierrez MD Transcribed by Norma Barbosa Authenticated and [facility]
== END 2025-07-23 23:59 | disposition home or self-care (01) ==
LOC: RAD 08:56
PROVIDERS: PCP Nurse Practitioner Family; Visit Provider Nurse Practitioner Family
DX: M81.0 Age-related osteoporosis without current pathological fracture (principal); M85.88 Other specified disorders of bone density and structure, other site
CPT/HCPCS: 77080

== ENCOUNTER 2025-07-25 10:25 | Outpatient (CLI) | payer MEDICARE, MEDICAID, SELFPAY ==
[2025-07-25 13:34] LABS: T4 (Thyroxine) 8.6 ug/dl (5.53-11.0)
[2025-07-25 13:48] LABS: Thyroid Stimulating Hormone 0.35 uIU/mL (0.465-4.68)
[2025-07-25 22:26] LABS: Free T4 (Free Thyroxine) 1.27 ng/dl (0.78-2.19)
--- OUTSIDE RECORDS SUMMARY | 2025-07-26 19:39 | XMS_ITS | Clinical Summary ---
Author Organization Healthcare Address [address] [place] [id number] Care Team Providers Care Set Up And Charger Name Role Phone Khoi Gonzalez MD Primary Care Provider [phone] Immunizations Immunization Administration Dates Next Due Pneumococcal [...] of Treatment Not on file Care Teams Set Up And Charger Relationship Specialty Start Date End Date Khoi Gonzalez MD [address] [place] [address] #1 #1 ANUSHA Mackenzie PCP - General 01/31/21
[2025-07-27 03:37] LABS: Triiodothyronine (T3) Free 2.3 pg/mL (2.0-4.4)
== END 2025-07-25 23:59 | disposition home or self-care (01) ==
LOC: LAB.DROPOF 07-26 19:38
PROVIDERS: PCP Nurse Practitioner Family; Visit Provider Nurse Practitioner Family
DX: E05.90 Thyrotoxicosis, unspecified without thyrotoxic crisis or storm (principal)
CPT/HCPCS: 84436; 84439; 84443; 84481

== ENCOUNTER 2025-08-23 09:50 | Outpatient (CLI) | payer MEDICARE, MEDICAID, SELFPAY ==
--- NOTE | 2025-08-23 10:00 | MM_ITS ---
PROCEDURE INFORMATION: Exam: MG Bilateral Screening 3D Mammography Exam date and time: 08/23/2025 9:53 AM Age: 70 years old Clinical indication: Screening exam. TECHNIQUE: Imaging protocol: Bilateral Screening tomosynthesis and 2D mammography including computer-aided detection (CAD) when performed. COMPARISON: 1. MG MM DIG SCREENING MAMM BI W/CAD 08/05/2022 10:54 AM 2. MG MM DIG SCREENING MAMM BI W/CAD 08/06/2023 10:19 AM 3. MG MM DIG SCREENING MAMM BI W/CAD 08/21/2024 1:56 PM FINDINGS: MAMMOGRAPHY: Breast composition: There are scattered areas of fibroglandular density. Mass: No suspicious masses. Architectural distortion: None. Calcifications: No suspicious calcifications. Asymmetric density: None. Skin thickening: None. Axillary adenopathy: None. IMPRESSION: No mammographic evidence of malignancy. Annual screening is recommended unless otherwise clinically indicated. ASSESSMENT: BI-RADS Category 1: Negative.
--- OUTSIDE RECORDS SUMMARY | 2025-08-23 10:09 | XMS_ITS ---
Laboratory report Created on: July 31, 2025 JETT PÉREZ : 1955 Sex: Female Author Organization Unknown PROBLEMS Problems List Code Description RESULTS Laboratory Orders Date Order Code Test 2025-07-25 [id number] TRIIODOTHYRONINE (T3), FREE Laboratory Results Date LOINC Test Value Unit Reference Range Interpre tation 2025-07-25 3051-0 TRIIODOTHYRONINE (T3), FREE 2.3 PG/ML 2.0-4.4
--- OUTSIDE RECORDS SUMMARY | 2025-08-23 10:09 | XMS_ITS | Clinical Summary ---
Author Organization Healthcare Address [address] [place] [id number] Care Team Providers Care Pensionholder Information Clerk Name Role Phone Khoi Gonzalez MD Primary Care Provider [phone] Immunizations Immunization Administration Dates Next Due Pneumococcal [...] of Treatment Not on file Care Teams Pensionholder Information Clerk Relationship Specialty Start Date End Date Khoi Gonzalez MD [address] [place] [address] #1 #1 ANUSHA Mackenzie [address] PCP - General 01/31/21
== END 2025-08-23 23:59 | disposition home or self-care (01) ==
LOC: RAD 09:50
PROVIDERS: PCP Nurse Practitioner Family; Visit Provider Nurse Practitioner Family
DX: Z12.31 Encounter for screening mammogram for malignant neoplasm of breast (principal); R92.323 Mammographic fibroglandular density, bilateral breasts
CPT/HCPCS: 77063; 77067